=== PATIENT | female | born 1990 | race Caucasian/White ===

== ENCOUNTER → 2016-09-26 | Outpatient (CLI) | payer OTHER | END | disposition home or self-care (01) | LOC: C.PAPS 08:41 | PROVIDERS: ATTEND Obstetrics & Gynecology | DX: Z12.4 Encounter for screening for malignant neoplasm of cervix (principal) ==

== ENCOUNTER → 2016-09-26 | Outpatient (CLI) | payer OTHER ==
[2016-10-01 04:24] LABS: CHLAMYDIA TRACH RNA*** NOT DETECTED (NOT DETECTED); GC (NEIS GONORRHOEAE)RNA** NOT DETECTED (NOT DETECTED)
== END | disposition home or self-care (01) ==
LOC: C.LABSPEC 17:47
PROVIDERS: ATTEND Obstetrics & Gynecology
DX: Z12.4 Encounter for screening for malignant neoplasm of cervix (principal)

== ENCOUNTER 2023-12-08 19:07 | Inpatient (IN) ==
--- NOTE | 2023-12-08 20:20 | History & Physical Report ---
Date of Service December 08, 2023 Assessment & Plan (1) Non-dilated cervix in term : (2) Post-dates : Plan cx encinas placed. fhts categ 1. dc home after 1hr. parameters to call reviewed. what to expect with encinas ripening balloon reviewed. nst reactive. History of Present Illness Chief Complaint: unfavorable cx at term Primary Care Provider: [facility] 33yo at 41+wks ega presents to LD for planned cervical dilator for unfavorable cx at term. No rom, vb. +FM. No ctx. PNC c/b 1. postdates PNL rh pos, ri, gbs neg OBH: g1 GYNH: nl paps no stds Allergies Allergy/AdvReac Type Severity Reaction Status Date / Time No Known Drug Allergies Allergy None Verified 12/08/23 19:31 Home Medications Medication Instructions Recorded Confirmed Type vits no.130-ferrous fum 1 tab PO DAILY 12/08/23 12/08/23 History 27 mg iron-folic acid 800 mcg tablet ( Vitamin) Patient History Medical History (Updated 12/08/23 @ 20:17 by Jeanne Yang MD, FACOG) History of chicken pox COVID-19 (05/2021) Anxiety and depression Presence of IUD Tressa July 2019 - , d/c'd Surgical History History of wisdom tooth extraction Family History Father Hypertension Dyslipidemia Kidney disease Mother Dyslipidemia Osteoporosis Thyroid disease Grandfather (Maternal) Cardiac disorder Denies family history of Ovarian cancer Breast cancer Colorectal cancer Uterine cancer Social History Smoking Status: Never smoker Do You Dip or Chew Tobacco: No; Hx Alcohol Use: Yes Alcohol Intake Frequency: 4 or More x per/Week Alcohol Intake Frequency Comment: 4 drinks on the weekend. 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 Other Information That Helps Us Care for You: No Feels Safe at Home: Yes Safety Concerns: Feels Safe At This Time Diet Comment: heatlhy diet, + yogurt, no milk, during the past year weight has: remained stable Physical Activity Frequency: Daily Physical Activity Frequency Comment: runs, walks, hikes Seatbelt Use: always Sunscreen Use: Yes Assistive Devices: None Review of Systems as per Subjective / HPI Physical Exam Constitutional: WD/WN, vitals as above Gastrointestinal (Abdomen): soft gravid nt Neurologic: grossly normal Psychiatric: A+Ox3, euthymic affect Genitourinary: Manual OB Exam: + cervical dilation (visually 1cm) OB Exam Monitor Tracing: + external FHT monitor used, + external uterine monitor used, + category I (nst reactive) and + normal FHT variability PROCEDURE: sse cx visualized, grasped on ant lip with ring forcep, encinas through os and balloon inflated with 40cc sterile water. Spec removed, encinas taped to leg. pt belem well. Results & Data Vital Signs (Past 12 Hours) Vital Signs Temp Pulse Resp BP 12/08/23 19:34 98.2 F 18 12/08/23 19:27 82 141/84 H Coding Level of Care Code None Diagnoses Non-dilated cervix in term O34.40 Post-dates O48.0 CPT Codes Misx Procedure Codes - 91825 NST: 82901 NST ([id number]) Misx Procedure Codes - 37415 Placement of cervical dilator: 43140 Placement of cervical dilator ([id number])
[2023-12-08 22:04] LABS: Albumin Globulin Ratio 1.2 (0.9-2); Albumin Level 3.6 gm/dl (3.4-5.0); BUN Creatinine Ratio 11.7 (10-20); Bilirubin Direct 0.1 mg/dl (0-0.2); Bilirubin,Total 0.2 mg/dl (0.2-1.0); Calcium 9.3 mg/dl (8.6-10.3); Creatinine Clr Calc Pharmacy 144.5 ml/min; Est GFR (African American) 137.8 ml/min; Est GFR (Non-African American) 118.9 ml/min; Globulin 2.9 gm/dl (2.5-4.0); Potassium 3.9 mmol/L (3.5-5.1); Total Protein 6.5 gm/dl (6.0-8.3)
[2023-12-08] MEDS ORDERED: OXYTOCIN 30 UNITS/NSS 30 UNITS/500 ML BAG IV PRN (22:30)
[2023-12-08] MEDS ORDERED: LIDOCAINE 1% LOCAL 20 ML VIAL INFIL PRN (22:30)
[2023-12-08] MEDS ORDERED: CALCIUM CARBONATE 500 MG CHEWABLE TAB PO PRN (22:30)
--- NOTE | 2023-12-08 22:34 | Communication Note ---
Date of Service: December 08, 2023 Patient bps reported to me. Labs pending. LFTs wnl. will rec keep to begin induction with pitocin. abd soft gravid nt, dtrs +2, no clonus, tr edema. no sx. epidural when desires.
[2023-12-08] MEDS: LACTATED RINGER'S 1,000 ML IV PRN (23:05)
[2023-12-08 23:17] LABS: Basophils # (auto) 0.04 K/uL (0.00-0.20); Basophils % (auto) 0.5 %; Eosinophils # (auto) 0.18 K/uL (0.00-0.50); Eosinophils % (auto) 2.4 %; Hematocrit (blood only) 34.1 % (37.0-47.0); Hemoglobin 11.8 g/dl (12.0-16.0); Immature Granulocytes # (auto) 0.07 K/uL (0.01-0.20); Immature Granulocytes % (auto) 0.9 %; Lymphocytes % (auto) 23.7 %; Mean Corpuscular Hemoglobin 29.7 pg (25.0-34.0); Mean Corpuscular Hgb Conc 34.6 g/dL (32.0-36.0); Mean Corpuscular Volume 85.9 fL (80.0-100.0); Mean Platelet Volume 12.3 fL (9.4-12.4); Monocytes # (auto) 0.74 K/uL (0.11-0.59); Monocytes % (auto) 9.7 %; Neutrophils # (auto) 4.77 K/uL (1.40-6.50); Neutrophils % (auto) 62.8 %; Platelet Count 159 K/uL (130-400); RDW Coefficient of Variation 14.6 % (11.5-14.5); RDW Standard Deviation 45.6 fL (36.4-46.3); Red Blood Count 3.97 M/uL (4.20-5.40)
[2023-12-09] MEDS: OXYTOCIN 30 UNITS/NSS 30 UNITS/500 ML BAG IV PRN (00:02)
[2023-12-09 00:15] LABS: Total Protein Urine Random 7.6 mg/dl (0-11.9)
[2023-12-09 00:20] LABS: Creatinine Urine Random 67.3 mg/dl; Protein Creatinine Ratio Urine 0.1 (0-0.2)
[2023-12-09] MEDS ORDERED: diphenhydrAMINE 50 MG/ML VIAL IV PRN ×2 (08:06→14:16)
--- NOTE | 2023-12-09 08:07 | Labor Progress Brief Note ---
Date of Service December 09, 2023 Subjective denies pain, cramping but worse laying down. balloon fell out about 4am. no coreas or visual change. having left sided calf tatyana horse. Assessment & Plan (1) Encounter for induction of labor: (2) Gestational hypertension: (3) Post-dates : Plan will see how arom helps labor pattern. monitor calf pain, if persists consider duplex. ordered zofran prn per pt request and benadryl due to her abdomen is itchy at her stretch mccain. fhts categ 1. bps ok. c/w pitocin. epidural when desires. Admission and Anticipated Discharge Date Admission Date: December 08, 2023 Physical Exam Constitutional: WD/WN, vitals as above Musculoskeletal: bilateral calves wnl, and equal, no erythema or cord. no significant swellling Genitourinary: Manual OB Exam: + cervical dilation 4 cm, + cervical effacement (75%), + station -2 and + amniotic fluid (arom) clear OB Exam Monitor Tracing: + external FHT monitor used, + external uterine monitor used (q3, pit at 13), + category I and + normal FHT variability Results & Data Vital Signs (Past 12 Hours) Vital Signs Temp Pulse Resp BP 12/09/23 07:24 75 143/81 H 12/09/23 07:13 97.9 F 18 12/09/23 06:24 76 16 141/72 H 12/09/23 05:24 68 142/91 H 12/09/23 04:24 74 129/64 12/09/23 04:09 18 12/09/23 04:09 97.5 F L 18 12/09/23 03:23 75 116/61 12/09/23 02:20 16 12/09/23 02:20 79 16 125/61 12/09/23 01:17 96 H 136/67 12/09/23 00:09 90 147/71 H 12/09/23 00:08 87 12/09/23 00:08 197/86 H 12/09/23 00:08 83 182/94 H 12/09/23 00:05 18 12/09/23 00:05 98.2 F 18 12/08/23 22:07 79 149/96 H 12/08/23 20:59 74 141/90 H Coding Level of Care Code None Diagnoses Encounter for induction of labor Z34.90 Gestational hypertension O13.9 Post-dates O48.0
[2023-12-09] MEDS: ONDANSETRON INJ 2 MG/ML 2 ML VIAL IV PRN (11:01)
[2023-12-09] MEDS: LIDOCAINE 2%/EPINEPHRINE 1:200,000 20 ML PF ONE (13:56)
[2023-12-09] MEDS: fentANYL 2 MCG/ML BUPIVacaine 0.125%-NSS 100ML BAG ONE (13:57)
--- NOTE | 2023-12-09 14:14 | Anesthesiology Consultation ---
Date of Service December 09, 2023 Assessment & Plan Chart Review Chart Review: Acceptable Risk for Labor Epidural Consults Requested none History Height/Weight Height: 5 ft 4 in Weight: 91.172 kg Allergies Allergy/AdvReac Type Severity Reaction Status Date / Time No Known Drug Allergies Allergy None Verified 12/08/23 19:31 Medications Home Medications Medication Instructions Recorded Confirmed Last Taken vits no.130-ferrous fum 1 tab PO DAILY 12/08/23 12/08/23 12/07/23 27 mg iron-folic acid 800 mcg tablet ( Vitamin) Active Medications Generic Name Dose Route Start Last Admin Trade Name Freq PRN Reason Stop Dose Admin Lactated Ringer's 1,000 mls @ 125 mls/hr 12/08/23 22:30 12/09/23 13:21 Lr IV 12/10/23 22:29 125 mls/hr .Q8H PRN Administration L&D Protocol Protocol Oxytocin 30 units in 500 mls @ 15 mls/hr 12/08/23 22:30 12/09/23 09:04 Pitocin 30 Units/Nss IV 12/10/23 22:29 0.9 units/hr .Q24H PRN 15 mls/hr Labor Induction/Augmentation Titration Protocol 0.9 UNITS/HR Ondansetron HCl 4 mg 12/09/23 08:06 12/09/23 11:01 Ondansetron Inj 2 Mg/Ml 2 Ml Vial IV 01/08/24 08:14 4 mg Q6H PRN Administration Nausea And Vomiting Past Medical History Medical History (Updated 12/09/23 @ 08:05 by Jeanne Yang MD, FACOG) History of chicken pox COVID-19 (05/2021) Anxiety and depression Presence of IUD Tressa July 2019 - , d/c'd Past Family History Family History Father Hypertension Dyslipidemia Kidney disease Mother Dyslipidemia Osteoporosis Thyroid disease Grandfather (Maternal) Cardiac disorder Denies family history of Ovarian cancer Breast cancer Colorectal cancer Uterine cancer Past Surgical History Surgical History History of wisdom tooth extraction Social History Smoking Status: Never smoker Do You Dip or Chew Tobacco: No Hx Alcohol Use: Yes Hx Substance Use: No substance use type: does not use Physical Exam Vital Signs Last Vital Signs Temp 36.8 C 12/09/23 12:36 Pulse 92 H 12/09/23 14:13 Resp 18 12/09/23 12:36 BP 154/75 H 12/09/23 14:11 Pulse Ox 98 12/09/23 14:13 Testing Laboratory Results 12/08/23 21:29 12/08/23 21:29
[2023-12-09] MEDS ORDERED: SODIUM CHLORIDE 0.9% PF INJ 10 ML VIAL EPI PRN (14:16)
[2023-12-09] MEDS ORDERED: NALOXONE HCL 1 MG in SODIUM CHLORIDE 0.9% 1,000 ML IV PRN (14:16)
[2023-12-09] MEDS ORDERED: LIDOCAINE 2% MPF LOCAL 5 ML VIAL EPI PRN (14:16)
[2023-12-09] MEDS ORDERED: ROPIVACAINE 0.5% PF 5 MG/ML 20 ML VIAL EPI PRN (14:16)
[2023-12-09] MEDS ORDERED: BUPIVACAINE 0.25% PF 30 ML VIAL EPI PRN (14:16)
[2023-12-09] MEDS ORDERED: NALOXONE HCL 0.4 MG/1 ML VIAL/CARP IV PRN (14:16)
[2023-12-09] MEDS ORDERED: ePHEDrine sulfate 50 MG/ML AMP IV PRN (14:16)
[2023-12-09] MEDS ORDERED: fentaNYL citrate PF 100 MCG/2 ML VIAL EPI PRN (14:16)
[2023-12-09] MEDS ORDERED: NALBUPHINE HCL 5 MG in SYRINGE 0 ML IV PRN (14:16)
[2023-12-09] MEDS: fentaNYL citrate PF 100 MCG/2 ML VIAL ONE (17:06)
[2023-12-09] MEDS: ePHEDrine sulfate 50 MG/ML AMP ONE (17:06)
[2023-12-09] MEDS: SODIUM CHLORIDE 0.9% PF INJ 10 ML VIAL ONE (17:07)
[2023-12-09] MEDS: BUPIVACAINE 0.25% PF 30 ML VIAL ONE (17:07)
[2023-12-09] MEDS: BUPIVACAINE 0.25% PF 30 ML VIAL EPI STA (17:07)
--- NOTE | 2023-12-09 18:17 | Labor Progress Brief Note ---
Date of Service December 09, 2023 Subjective Comfortable. FHT Cat 1 [place] Q 2-3 SVE 6/80/-2 IUPC placed, ok to increase pitocin to 25. Assessment & Plan Admission and Anticipated Discharge Date Admission Date: December 08, 2023 Results & Data Vital Signs (Past 12 Hours) Vital Signs Temp Pulse Resp BP Pulse Ox 12/09/23 18:13 85 98 12/09/23 18:11 80 140/78 12/09/23 18:08 94 H 99 12/09/23 18:03 87 99 12/09/23 17:58 79 100 12/09/23 17:57 75 138/79 12/09/23 17:53 83 98 12/09/23 17:48 80 98 12/09/23 17:43 85 99 12/09/23 17:41 85 129/77 12/09/23 17:38 81 99 12/09/23 17:33 74 99 12/09/23 17:28 95 H 98 12/09/23 17:27 83 135/79 12/09/23 17:23 84 99 12/09/23 17:18 75 99 12/09/23 17:15 16 12/09/23 17:15 16 12/09/23 17:13 78 100 12/09/23 17:12 72 129/74 12/09/23 17:08 81 99 12/09/23 17:03 78 99 12/09/23 16:58 75 99 12/09/23 16:56 74 135/76 12/09/23 16:53 77 99 12/09/23 16:48 88 100 12/09/23 16:46 102 H 88 L 12/09/23 16:43 78 99 12/09/23 16:41 74 135/66 12/09/23 16:38 81 99 12/09/23 16:33 78 100 12/09/23 16:28 80 100 12/09/23 16:26 78 130/63 12/09/23 16:23 81 99 12/09/23 16:18 82 99 12/09/23 16:13 76 100 12/09/23 16:12 36.4 C L 81 130/60 12/09/23 16:08 82 99 12/09/23 16:03 79 99 12/09/23 16:00 18 12/09/23 16:00 18 07/16/24 15:58 80 99 12/09/23 15:56 78 136/77 12/09/23 15:53 85 99 12/09/23 15:48 79 99 12/09/23 15:43 72 96 12/09/23 15:41 72 130/66 12/09/23 15:38 71 97 12/09/23 15:34 76 94 12/09/23 15:33 76 94 12/09/23 15:30 18 12/09/23 15:30 18 12/09/23 15:28 74 94 12/09/23 15:26 75 130/62 12/09/23 15:25 76 94 12/09/23 15:23 76 94 12/09/23 15:18 94 12/09/23 15:18 73 12/09/23 15:18 74 94 12/09/23 15:13 94 12/09/23 15:13 78 12/09/23 15:13 77 92 12/09/23 15:11 74 129/61 12/09/23 15:08 94 12/09/23 15:08 77 12/09/23 15:08 79 94 12/09/23 15:03 77 95 12/09/23 14:58 77 96 12/09/23 14:57 77 139/70 12/09/23 14:53 77 96 12/09/23 14:48 78 96 12/09/23 14:43 98 12/09/23 14:43 78 12/09/23 14:43 78 131/82 12/09/23 14:38 90 98 12/09/23 14:33 82 96 12/09/23 14:30 16 12/09/23 14:30 16 12/09/23 14:28 80 99 12/09/23 14:26 82 157/69 H 12/09/23 14:23 89 97 12/09/23 14:18 83 98 12/09/23 14:13 92 H 98 12/09/23 14:11 89 154/75 H 12/09/23 14:08 82 99 12/09/23 14:07 83 135/64 12/09/23 14:04 87 131/83 12/09/23 14:03 86 97 12/09/23 14:01 85 125/61 12/09/23 13:58 82 125/57 L 98 12/09/23 13:55 89 138/65 12/09/23 13:53 89 98 12/09/23 13:52 83 130/65 12/09/23 13:49 79 124/63 12/09/23 13:48 86 97 12/09/23 13:46 81 132/70 12/09/23 13:44 83 142/80 H 12/09/23 13:43 85 139/73 98 12/09/23 13:40 71 141/78 H 12/09/23 13:38 82 98 12/09/23 13:33 92 H 99 12/09/23 13:28 77 98 12/09/23 13:23 86 98 12/09/23 12:36 18 12/09/23 12:36 36.8 C 18 12/09/23 12:35 87 149/80 H 12/09/23 11:32 36.7 C 75 136/82 12/09/23 10:33 76 137/87 12/09/23 09:05 36.7 C 18 12/09/23 09:00 18 12/09/23 09:00 18 12/09/23 08:24 72 132/82 12/09/23 07:24 75 143/81 H 12/09/23 07:13 36.6 C 12/09/23 06:24 76 16 141/72 H Coding Level of Care Code None
[2023-12-09] MEDS: SODIUM CHLORIDE 0.9% PF INJ 10 ML VIAL EPI STA (18:34)
[2023-12-09] MEDS: fentaNYL citrate PF 100 MCG/2 ML VIAL EPI STA (18:34)
[2023-12-09] MEDS: LIDOCAINE 2%/EPINEPHRINE 1:200,000 20 ML PF EPI STA (18:34)
[2023-12-09] MEDS: fentANYL 2 MCG/ML BUPIVacaine 0.125%-NSS 100ML BAG EPI PRN (21:39)
--- NOTE | 2023-12-09 22:15 | Labor Progress Brief Note ---
Date of Service December 09, 2023 Subjective Comfortable with epidural. FHT Cat 1 with early decelerations [place] Q 2-4 7//-1 Pitocin at 25. Continue IOL. Assessment & Plan Admission and Anticipated Discharge Date Admission Date: December 08, 2023 Results & Data Vital Signs (Past 12 Hours) Vital Signs Temp Pulse Resp BP Pulse Ox 12/09/23 22:11 86 140/78 12/09/23 22:08 88 98 12/09/23 22:03 82 97 12/09/23 21:58 82 98 12/09/23 21:56 85 137/79 12/09/23 21:53 85 98 12/09/23 21:48 86 98 12/09/23 21:43 90 97 12/09/23 21:42 84 134/68 12/09/23 21:38 93 H 98 12/09/23 21:33 93 H 99 12/09/23 21:28 95 H 98 12/09/23 21:26 86 131/62 12/09/23 21:23 87 99 12/09/23 21:18 83 98 12/09/23 21:13 90 99 12/09/23 21:11 86 131/60 12/09/23 21:09 18 12/09/23 21:09 36.8 C 18 12/09/23 21:08 94 H 99 12/09/23 21:03 96 H 99 12/09/23 20:58 87 98 12/09/23 20:56 83 134/78 12/09/23 20:53 85 96 12/09/23 20:48 82 98 12/09/23 20:43 78 99 12/09/23 20:42 80 131/77 12/09/23 20:38 80 99 12/09/23 20:33 81 100 12/09/23 20:28 89 99 12/09/23 20:26 77 134/75 12/09/23 20:23 83 99 12/09/23 20:18 82 98 12/09/23 20:13 82 99 12/09/23 20:11 84 131/63 12/09/23 20:08 89 99 12/09/23 20:03 80 99 12/09/23 19:58 83 98 12/09/23 19:57 82 132/87 12/09/23 19:53 80 99 12/09/23 19:48 83 98 12/09/23 19:43 85 99 12/09/23 19:42 85 127/67 12/09/23 19:38 80 98 12/09/23 19:33 89 99 12/09/23 19:28 83 99 12/09/23 19:26 83 120/61 12/09/23 19:23 86 99 12/09/23 19:18 82 100 12/09/23 19:15 86 128/69 12/09/23 19:13 95 H 98 12/09/23 19:10 36.7 C 18 12/09/23 19:08 83 99 12/09/23 19:03 84 98 12/09/23 18:58 87 98 12/09/23 18:53 82 99 12/09/23 18:48 95 H 98 12/09/23 18:43 82 158/96 H 98 12/09/23 18:38 84 99 12/09/23 18:33 91 H 98 12/09/23 18:28 89 98 12/09/23 18:26 85 128/65 12/09/23 18:23 86 98 12/09/23 18:20 18 12/09/23 18:20 36.8 C 18 12/09/23 18:18 93 H 98 12/09/23 18:13 85 98 12/09/23 18:11 80 140/78 12/09/23 18:08 94 H 99 12/09/23 18:03 87 99 12/09/23 17:58 79 100 12/09/23 17:57 75 138/79 12/09/23 17:53 83 98 12/09/23 17:48 80 98 12/09/23 17:43 85 99 12/09/23 17:41 85 129/77 12/09/23 17:38 81 99 12/09/23 17:33 74 99 12/09/23 17:28 95 H 98 12/09/23 17:27 83 135/79 12/09/23 17:23 84 99 12/09/23 17:18 75 99 12/09/23 17:15 16 12/09/23 17:15 16 12/09/23 17:13 78 100 12/09/23 17:12 72 129/74 12/09/23 17:08 81 99 12/09/23 17:03 78 99 12/09/23 16:58 75 99 12/09/23 16:56 74 135/76 12/09/23 16:53 77 99 12/09/23 16:48 88 100 12/09/23 16:46 102 H 88 L 12/09/23 16:43 78 99 12/09/23 16:41 74 135/66 12/09/23 16:38 81 99 12/09/23 16:33 78 100 12/09/23 16:28 80 100 12/09/23 16:26 78 130/63 12/09/23 16:23 81 99 12/09/23 16:18 82 99 12/09/23 16:13 76 100 12/09/23 16:12 36.4 C L 81 130/60 12/09/23 16:08 82 99 12/09/23 16:03 79 99 12/09/23 16:00 18 12/09/23 16:00 18 12/09/23 15:58 80 99 12/09/23 15:56 78 136/77 12/09/23 15:53 85 99 12/09/23 15:48 79 99 12/09/23 15:43 72 96 12/09/23 15:41 72 130/66 12/09/23 15:38 71 97 12/09/23 15:34 76 94 12/09/23 15:33 76 94 12/09/23 15:30 18 12/09/23 15:30 18 12/09/23 15:28 74 94 12/09/23 15:26 75 130/62 12/09/23 15:25 76 94 12/09/23 15:23 76 94 12/09/23 15:18 94 12/09/23 15:18 73 12/09/23 15:18 74 94 12/09/23 15:13 94 12/09/23 15:13 78 12/09/23 15:13 77 92 12/09/23 15:11 74 129/61 12/09/23 15:08 94 12/09/23 15:08 77 12/09/23 15:08 79 94 12/09/23 15:03 77 95 12/09/23 14:58 77 96 12/09/23 14:57 77 139/70 12/09/23 14:53 77 96 12/09/23 14:48 78 96 12/09/23 14:43 98 12/09/23 14:43 78 07 14:43 78 131/82 12/09/23 14:38 90 98 12/09/23 14:33 82 96 12/09/23 14:30 16 12/09/23 14:30 16 12/09/23 14:28 80 99 12/09/23 14:26 82 157/69 H 12/09/23 14:23 89 97 12/09/23 14:18 83 98 12/09/23 14:13 92 H 98 12/09/23 14:11 89 154/75 H 12/09/23 14:08 82 99 12/09/23 14:07 83 135/64 12/09/23 14:04 87 131/83 12/09/23 14:03 86 97 12/09/23 14:01 85 125/61 12/09/23 13:58 82 125/57 L 98 12/09/23 13:55 89 138/65 12/09/23 13:53 89 98 12/09/23 13:52 83 130/65 12/09/23 13:49 79 124/63 12/09/23 13:48 86 97 12/09/23 13:46 81 132/70 12/09/23 13:44 83 142/80 H 12/09/23 13:43 85 139/73 98 12/09/23 13:40 71 141/78 H 12/09/23 13:38 82 98 12/09/23 13:33 92 H 99 12/09/23 13:28 77 98 12/09/23 13:23 86 98 12/09/23 12:36 18 12/09/23 12:36 36.8 C 18 12/09/23 12:35 87 149/80 H 12/09/23 11:32 36.7 C 75 136/82 12/09/23 10:33 76 137/87 Coding Level of Care Code None
--- NOTE | 2023-12-10 01:29 | Labor Progress Brief Note ---
Date of Service December 10, 2023 Subjective Comfortable. FHT Cat 1 [place] Q 2-4 SVE 8-9/100/-1 Continuing to make slow change, however has continued to progress. Will continue IOL at this time. Assessment & Plan Admission and Anticipated Discharge Date Admission Date: December 08, 2023 Results & Data Vital Signs (Past 12 Hours) Vital Signs Temp Pulse Resp BP Pulse Ox 12/10/23 01:27 92 H 111/68 12/10/23 01:23 91 H 97 12/10/23 01:18 83 97 12/10/23 01:13 79 97 12/10/23 01:11 77 128/66 12/10/23 01:08 77 98 12/10/23 01:03 85 97 12/10/23 01:02 18 12/10/23 01:02 36.9 C 18 12/10/23 00:58 80 97 12/10/23 00:56 86 140/74 12/10/23 00:53 96 H 96 12/10/23 00:52 86 92 12/10/23 00:48 83 98 12/10/23 00:43 102 H 97 12/10/23 00:42 81 134/64 12/10/23 00:38 87 96 12/10/23 00:33 90 98 12/10/23 00:28 87 97 12/10/23 00:26 83 127/63 12/10/23 00:23 96 H 98 12/10/23 00:18 87 98 12/10/23 00:13 83 97 12/10/23 00:11 82 118/55 L 12/10/23 00:10 85 91 12/10/23 00:08 86 97 12/10/23 00:03 96 H 98 12/09/23 23:58 93 H 96 12/09/23 23:56 88 124/62 12/09/23 23:53 87 95 12/09/23 23:48 82 95 12/09/23 23:45 85 94 12/09/23 23:43 86 95 12/09/23 23:41 82 103/53 L 12/09/23 23:38 82 96 12/09/23 23:33 87 95 12/09/23 23:28 88 95 12/09/23 23:26 85 123/63 12/09/23 23:23 94 H 97 12/09/23 23:18 82 96 12/09/23 23:13 93 H 97 12/09/23 23:12 88 120/60 12/09/23 23:08 87 97 12/09/23 23:06 37.0 C 18 12/09/23 23:03 88 95 12/09/23 22:58 85 95 12/09/23 22:56 84 131/68 12/09/23 22:53 88 96 12/09/23 22:48 88 96 12/09/23 22:43 82 97 12/09/23 22:41 81 135/73 12/09/23 22:38 89 98 12/09/23 22:33 87 97 12/09/23 22:28 89 97 12/09/23 22:27 86 129/77 12/09/23 22:23 104 H 97 12/09/23 22:18 89 98 12/09/23 22:13 88 98 12/09/23 22:11 86 140/78 12/09/23 22:08 88 98 12/09/23 22:03 82 97 12/09/23 21:58 82 98 12/09/23 21:56 85 137/79 12/09/23 21:53 85 98 12/09/23 21:48 86 98 12/09/23 21:43 90 97 12/09/23 21:42 84 134/68 12/09/23 21:38 93 H 98 12/09/23 21:33 93 H 99 12/09/23 21:28 95 H 98 12/09/23 21:26 86 131/62 12/09/23 21:23 87 99 12/09/23 21:18 83 98 12/09/23 21:13 90 99 12/09/23 21:11 86 131/60 12/09/23 21:09 18 12/09/23 21:09 36.8 C 18 12/09/23 21:08 94 H 99 12/09/23 21:03 96 H 99 12/09/23 20:58 87 98 12/09/23 20:56 83 134/78 12/09/23 20:53 85 96 12/09/23 20:48 82 98 12/09/23 20:43 78 99 12/09/23 20:42 80 131/77 12/09/23 20:38 80 99 07/16/24 20:33 81 100 12/09/23 20:28 89 99 12/09/23 20:26 77 134/75 12/09/23 20:23 83 99 12/09/23 20:18 82 98 12/09/23 20:13 82 99 12/09/23 20:11 84 131/63 12/09/23 20:08 89 99 12/09/23 20:03 80 99 12/09/23 19:58 83 98 12/09/23 19:57 82 132/87 12/09/23 19:53 80 99 12/09/23 19:48 83 98 12/09/23 19:43 85 99 12/09/23 19:42 85 127/67 12/09/23 19:38 80 98 12/09/23 19:33 89 99 12/09/23 19:28 83 99 12/09/23 19:26 83 120/61 12/09/23 19:23 86 99 12/09/23 19:18 82 100 12/09/23 19:15 86 128/69 12/09/23 19:13 95 H 98 12/09/23 19:10 36.7 C 18 12/09/23 19:08 83 99 12/09/23 19:03 84 98 12/09/23 18:58 87 98 12/09/23 18:53 82 99 12/09/23 18:48 95 H 98 12/09/23 18:43 82 158/96 H 98 12/09/23 18:38 84 99 12/09/23 18:33 91 H 98 12/09/23 18:28 89 98 12/09/23 18:26 85 128/65 12/09/23 18:23 86 98 12/09/23 18:20 18 12/09/23 18:20 36.8 C 18 12/09/23 18:18 93 H 98 12/09/23 18:13 85 98 12/09/23 18:11 80 140/78 12/09/23 18:08 94 H 99 12/09/23 18:03 87 99 12/09/23 17:58 79 100 12/09/23 17:57 75 138/79 12/09/23 17:53 83 98 12/09/23 17:48 80 98 12/09/23 17:43 85 99 12/09/23 17:41 85 129/77 12/09/23 17:38 81 99 12/09/23 17:33 74 99 12/09/23 17:28 95 H 98 12/09/23 17:27 83 135/79 12/09/23 17:23 84 99 12/09/23 17:18 75 99 12/09/23 17:15 16 12/09/23 17:15 16 12/09/23 17:13 78 100 12/09/23 17:12 72 129/74 12/09/23 17:08 81 99 12/09/23 17:03 78 99 12/09/23 16:58 75 99 12/09/23 16:56 74 135/76 12/09/23 16:53 77 99 12/09/23 16:48 88 100 12/09/23 16:46 102 H 88 L 12/09/23 16:43 78 99 12/09/23 16:41 74 135/66 12/09/23 16:38 81 99 12/09/23 16:33 78 100 12/09/23 16:28 80 100 12/09/23 16:26 78 130/63 12/09/23 16:23 81 99 12/09/23 16:18 82 99 12/09/23 16:13 76 100 12/09/23 16:12 36.4 C L 81 130/60 12/09/23 16:08 82 99 12/09/23 16:03 79 99 12/09/23 16:00 18 12/09/23 16:00 18 12/09/23 15:58 80 99 12/09/23 15:56 78 136/77 12/09/23 15:53 85 99 12/09/23 15:48 79 99 12/09/23 15:43 72 96 12/09/23 15:41 72 130/66 12/09/23 15:38 71 97 12/09/23 15:34 76 94 12/09/23 15:33 76 94 12/09/23 15:30 18 12/09/23 15:30 18 12/09/23 15:28 74 94 12/09/23 15:26 75 130/62 12/09/23 15:25 76 94 12/09/23 15:23 76 94 12/09/23 15:18 94 12/09/23 15:18 73 12/09/23 15:18 74 94 12/09/23 15:13 94 12/09/23 15:13 78 12/09/23 15:13 77 92 12/09/23 15:11 74 129/61 12/09/23 15:08 94 12/09/23 15:08 77 12/09/23 15:08 79 94 12/09/23 15:03 77 95 12/09/23 14:58 77 96 12/09/23 14:57 77 139/70 12/09/23 14:53 77 96 12/09/23 14:48 78 96 12/09/23 14:43 98 12/09/23 14:43 78 12/09/23 14:43 78 131/82 12/09/23 14:38 90 98 12/09/23 14:33 82 96 12/09/23 14:30 16 12/09/23 14:30 16 12/09/23 14:28 80 99 12/09/23 14:26 82 157/69 H 12/09/23 14:23 89 97 12/09/23 14:18 83 98 12/09/23 14:13 92 H 98 12/09/23 14:11 89 154/75 H 12/09/23 14:08 82 99 12/09/23 14:07 83 135/64 12/09/23 14:04 87 131/83 12/09/23 14:03 86 97 12/09/23 14:01 85 125/61 12/09/23 13:58 82 125/57 L 98 12/09/23 13:55 89 138/65 12/09/23 13:53 89 98 12/09/23 13:52 83 130/65 12/09/23 13:49 79 124/63 12/09/23 13:48 86 97 12/09/23 13:46 81 132/70 12/09/23 13:44 83 142/80 H 12/09/23 13:43 85 139/73 98 12/09/23 13:40 71 141/78 H 12/09/23 13:38 82 98 12/09/23 13:33 92 H 99 Coding Level of Care Code None
--- NOTE | 2023-12-10 07:31 | Labor Progress Brief Note ---
Date of Service December 10, 2023 Subjective Feeling increase in pressure with ctx. FHT Cat 1 [facility] Q 2-3 SVE 9/100/0 Will allow pitocin to increase to 30. Assessment & Plan Admission and Anticipated Discharge Date Admission Date: December 08, 2023 Results & Data Vital Signs (Past 12 Hours) Vital Signs Temp Pulse Resp BP Pulse Ox 12/10/23 07:27 78 153/90 H 12/10/23 07:23 84 97 12/10/23 07:18 85 97 12/10/23 07:13 90 97 12/10/23 07:12 89 146/83 H 12/10/23 07:08 86 98 12/10/23 07:03 101 H 98 12/10/23 06:58 87 98 12/10/23 06:56 83 142/77 H 12/10/23 06:53 81 97 12/10/23 06:48 83 98 12/10/23 06:43 88 99 12/10/23 06:41 87 133/68 12/10/23 06:38 86 99 12/10/23 06:33 92 H 98 12/10/23 06:28 93 H 98 12/10/23 06:26 82 127/78 12/10/23 06:23 85 99 12/10/23 06:18 87 100 12/10/23 06:13 83 98 12/10/23 06:11 78 136/81 12/10/23 06:08 77 96 12/10/23 06:03 76 97 12/10/23 05:58 74 96 12/10/23 05:56 79 137/78 12/10/23 05:53 79 96 12/10/23 05:48 76 96 12/10/23 05:43 80 99 12/10/23 05:41 74 137/77 12/10/23 05:38 74 97 12/10/23 05:33 77 97 12/10/23 05:28 81 99 12/10/23 05:27 74 130/71 12/10/23 05:23 79 98 12/10/23 05:18 85 99 12/10/23 05:13 96 H 99 12/10/23 05:11 90 101/73 12/10/23 05:08 88 99 12/10/23 05:03 36.8 C 84 18 98 12/10/23 04:58 75 98 07/17/24 04:56 78 116/62 12/10/23 04:53 81 95 12/10/23 04:48 81 95 12/10/23 04:43 80 96 12/10/23 04:41 81 119/65 12/10/23 04:38 78 96 12/10/23 04:33 76 96 12/10/23 04:28 82 96 12/10/23 04:26 77 121/67 12/10/23 04:23 76 96 12/10/23 04:18 76 96 12/10/23 04:13 76 97 12/10/23 04:11 76 119/64 12/10/23 04:08 80 96 12/10/23 04:03 79 96 12/10/23 03:58 81 98 12/10/23 03:57 78 121/66 12/10/23 03:53 18 12/10/23 03:53 36.9 C 86 18 99 12/10/23 03:48 86 99 12/10/23 03:43 76 96 12/10/23 03:41 77 126/65 12/10/23 03:38 77 96 12/10/23 03:33 77 96 12/10/23 03:28 82 97 12/10/23 03:27 75 131/69 12/10/23 03:23 80 98 12/10/23 03:18 82 98 12/10/23 03:13 87 99 12/10/23 03:11 74 127/68 12/10/23 03:08 86 99 12/10/23 03:03 87 99 12/10/23 02:58 79 96 12/10/23 02:56 80 126/58 L 12/10/23 02:53 88 99 12/10/23 02:48 89 98 12/10/23 02:43 90 97 12/10/23 02:41 85 126/68 12/10/23 02:38 80 96 12/10/23 02:33 84 95 12/10/23 02:28 84 95 12/10/23 02:27 86 94 12/10/23 02:26 80 117/60 12/10/23 02:23 83 94 12/10/23 02:22 81 94 12/10/23 02:18 83 94 12/10/23 02:16 82 94 12/10/23 02:13 81 95 12/10/23 02:11 83 114/57 L 94 12/10/23 02:08 82 95 12/10/23 02:06 77 94 12/10/23 02:03 84 95 12/10/23 01:58 82 95 12/10/23 01:56 78 117/62 12/10/23 01:53 86 95 12/10/23 01:48 83 96 12/10/23 01:43 86 97 12/10/23 01:41 82 119/61 12/10/23 01:38 86 98 12/10/23 01:33 88 97 12/10/23 01:28 87 97 12/10/23 01:27 92 H 111/68 12/10/23 01:23 91 H 97 12/10/23 01:18 83 97 12/10/23 01:13 79 97 12/10/23 01:11 77 128/66 12/10/23 01:08 77 98 12/10/23 01:03 85 97 12/10/23 01:02 18 12/10/23 01:02 36.9 C 18 12/10/23 00:58 80 97 12/10/23 00:56 86 140/74 12/10/23 00:53 96 H 96 12/10/23 00:52 86 92 12/10/23 00:48 83 98 12/10/23 00:43 102 H 97 12/10/23 00:42 81 134/64 12/10/23 00:38 87 96 12/10/23 00:33 90 98 12/10/23 00:28 87 97 12/10/23 00:26 83 127/63 12/10/23 00:23 96 H 98 12/10/23 00:18 87 98 12/10/23 00:13 83 97 12/10/23 00:11 82 118/55 L 12/10/23 00:10 85 91 12/10/23 00:08 86 97 12/10/23 00:03 96 H 98 12/09/23 23:58 93 H 96 12/09/23 23:56 88 124/62 12/09/23 23:53 87 95 12/09/23 23:48 82 95 12/09/23 23:45 85 94 12/09/23 23:43 86 95 12/09/23 23:41 82 103/53 L 12/09/23 23:38 82 96 12/09/23 23:33 87 95 12/09/23 23:28 88 95 12/09/23 23:26 85 123/63 12/09/23 23:23 94 H 97 12/09/23 23:18 82 96 12/09/23 23:13 93 H 97 12/09/23 23:12 88 120/60 12/09/23 23:08 87 97 12/09/23 23:06 37.0 C 18 12/09/23 23:03 88 95 12/09/23 22:58 85 95 12/09/23 22:56 84 131/68 12/09/23 22:53 88 96 12/09/23 22:48 88 96 12/09/23 22:43 82 97 12/09/23 22:41 81 135/73 12/09/23 22:38 89 98 12/09/23 22:33 87 97 12/09/23 22:28 89 97 12/09/23 22:27 86 129/77 12/09/23 22:23 104 H 97 12/09/23 22:18 89 98 12/09/23 22:13 88 98 12/09/23 22:11 86 140/78 12/09/23 22:08 88 98 12/09/23 22:03 82 97 12/09/23 21:58 82 98 12/09/23 21:56 85 137/79 12/09/23 21:53 85 98 12/09/23 21:48 86 98 12/09/23 21:43 90 97 12/09/23 21:42 84 134/68 12/09/23 21:38 93 H 98 12/09/23 21:33 93 H 99 12/09/23 21:28 95 H 98 12/09/23 21:26 86 131/62 12/09/23 21:23 87 99 12/09/23 21:18 83 98 12/09/23 21:13 90 99 12/09/23 21:11 86 131/60 12/09/23 21:09 18 12/09/23 21:09 36.8 C 18 12/09/23 21:08 94 H 99 12/09/23 21:03 96 H 99 12/09/23 20:58 87 98 12/09/23 20:56 83 134/78 12/09/23 20:53 85 96 12/09/23 20:48 82 98 12/09/23 20:43 78 99 12/09/23 20:42 80 131/77 12/09/23 20:38 80 99 12/09/23 20:33 81 100 12/09/23 20:28 89 99 12/09/23 20:26 77 134/75 12/09/23 20:23 83 99 12/09/23 20:18 82 98 12/09/23 20:13 82 99 12/09/23 20:11 84 131/63 12/09/23 20:08 89 99 12/09/23 20:03 80 99 12/09/23 19:58 83 98 12/09/23 19:57 82 132/87 12/09/23 19:53 80 99 12/09/23 19:48 83 98 12/09/23 19:43 85 99 12/09/23 19:42 85 127/67 12/09/23 19:38 80 98 12/09/23 19:33 89 99 Coding Level of Care Code None
--- NOTE | 2023-12-10 12:29 | Labor Progress Brief Note ---
Date of Service December 10, 2023 Subjective Reason For Note: Routine Evaluation Assessment & Plan (1) Encounter for induction of labor: Plan: Cervix unchanged from prior exam. Has been approximately 9 cm dilated since 5: 30 AM. Pitocin currently at 30 with inadequate contractions noted with IUPC. Will stop Pitocin and restarted at half and 30 minutes. Discussed plan with patient and her partner who are agreeable. Category 1 tracing noted. (2) Supervision of normal first : Trimester: third trimester Qualified Code(s): Z34.03 - Encounter for supervision of normal first , third trimester (3) Gestational hypertension: Trimester: third trimester Qualified Code(s): O13.3 - Gestational [-induced] hypertension without significant proteinuria, third trimester Admission and Anticipated Discharge Date Admission Date: December 08, 2023 Physical Exam Physical Exam: Note from evaluation at approximately 9:45 AM Genitourinary: Manual OB Exam: + cervical dilation 9 cm, + cervical effacement 100% and + station + 1 OB Exam Monitor Tracing: + external FHT monitor used, + external uterine monitor used, + category I and + normal FHT variability Cervix unchanged from prior exam. Results & Data Vital Signs (Past 12 Hours) Vital Signs Temp Pulse Resp BP Pulse Ox 12/10/23 12:23 81 98 12/10/23 12:18 83 99 12/10/23 12:13 78 99 12/10/23 12:11 82 135/70 12/10/23 12:08 94 H 97 12/10/23 12:03 83 99 12/10/23 11:58 76 98 12/10/23 11:56 83 134/72 12/10/23 11:53 77 99 12/10/23 11:48 101 H 98 12/10/23 11:43 90 99 12/10/23 11:41 78 134/61 12/10/23 11:38 80 97 12/10/23 11:33 88 98 12/10/23 11:28 98 12/10/23 11:28 93 H 12/10/23 11:28 78 112/57 L 12/10/23 11:23 87 99 12/10/23 11:18 86 98 12/10/23 11:15 16 12/10/23 11:15 36.9 C 16 12/10/23 11:13 95 H 99 12/10/23 11:12 81 132/71 24 11:08 80 98 0724 11:03 84 99 12/10/23 10:58 81 97 24 10:56 86 128/70 24 10:53 89 98 24 10:48 82 96 12/10/23 10:43 91 H 98 12/10/23 10:42 93 H 121/60 12/10/23 10:38 89 95 24 10:35 79 94 24 10:33 79 95 24 10:28 80 95 24 10:27 76 132/73 12/10/23 10:23 78 96 12/10/23 10:18 79 95 12/10/23 10:13 77 97 12/10/23 10:11 76 146/77 H 12/10/23 10:08 79 96 12/10/23 10:03 76 98 12/10/23 09:58 81 98 12/10/23 09:56 75 144/77 H 12/10/23 09:53 79 98 12/10/23 09:48 83 98 12/10/23 09:47 82 131/70 12/10/23 09:43 87 99 12/10/23 09:38 82 99 12/10/23 09:33 80 99 12/10/23 09:28 80 99 12/10/23 09:26 78 135/73 12/10/23 09:23 81 98 12/10/23 09:18 79 98 12/10/23 09:13 88 99 12/10/23 09:12 80 128/68 12/10/23 09:08 93 H 99 12/10/23 09:03 84 97 12/10/23 08:58 87 98 12/10/23 08:56 76 160/96 H 12/10/23 08:53 74 96 12/10/23 08:48 74 96 12/10/23 08:43 75 98 12/10/23 08:42 75 170/97 H 12/10/23 08:38 77 98 12/10/23 08:33 90 98 12/10/23 08:28 89 99 12/10/23 08:27 80 164/98 H 12/10/23 08:23 77 97 12/10/23 08:18 76 98 12/10/23 08:13 87 98 12/10/23 08:12 81 156/98 H 12/10/23 08:08 36.8 C 90 18 98 12/10/23 08:03 89 99 12/10/23 07:58 108 H 98 12/10/23 07:56 83 137/81 12/10/23 07:53 77 98 12/10/23 07:48 79 99 12/10/23 07:43 84 97 12/10/23 07:41 88 141/77 H 12/10/23 07:38 84 99 12/10/23 07:33 91 H 99 12/10/23 07:28 82 97 12/10/23 07:27 78 153/90 H 12/10/23 07:23 84 97 12/10/23 07:18 85 97 12/10/23 07:13 90 97 12/10/23 07:12 89 146/83 H 12/10/23 07:10 20 12/10/23 07:10 36.7 C 20 12/10/23 07:08 86 98 12/10/23 07:03 101 H 98 12/10/23 06:58 87 98 12/10/23 06:56 83 142/77 H 12/10/23 06:53 81 97 12/10/23 06:48 83 98 12/10/23 06:43 88 99 12/10/23 06:41 87 133/68 12/10/23 06:38 86 99 12/10/23 06:33 92 H 98 12/10/23 06:28 93 H 98 12/10/23 06:26 82 127/78 12/10/23 06:23 85 99 12/10/23 06:18 87 100 12/10/23 06:13 83 98 12/10/23 06:11 78 136/81 12/10/23 06:08 77 96 12/10/23 06:03 76 97 12/10/23 05:58 74 96 12/10/23 05:56 79 137/78 12/10/23 05:53 79 96 12/10/23 05:48 76 96 12/10/23 05:43 80 99 12/10/23 05:41 74 137/77 12/10/23 05:38 74 97 12/10/23 05:33 77 97 07/17/24 05:28 81 99 12/10/23 05:27 74 130/71 12/10/23 05:23 79 98 12/10/23 05:18 85 99 12/10/23 05:13 96 H 99 12/10/23 05:11 90 101/73 12/10/23 05:08 88 99 12/10/23 05:03 36.8 C 84 18 98 12/10/23 04:58 75 98 12/10/23 04:56 78 116/62 12/10/23 04:53 81 95 12/10/23 04:48 81 95 12/10/23 04:43 80 96 12/10/23 04:41 81 119/65 12/10/23 04:38 78 96 12/10/23 04:33 76 96 12/10/23 04:28 82 96 12/10/23 04:26 77 121/67 12/10/23 04:23 76 96 12/10/23 04:18 76 96 12/10/23 04:13 76 97 12/10/23 04:11 76 119/64 12/10/23 04:08 80 96 12/10/23 04:03 79 96 12/10/23 03:58 81 98 12/10/23 03:57 78 121/66 12/10/23 03:53 18 12/10/23 03:53 36.9 C 86 18 99 12/10/23 03:48 86 99 12/10/23 03:43 76 96 12/10/23 03:41 77 126/65 12/10/23 03:38 77 96 12/10/23 03:33 77 96 12/10/23 03:28 82 97 12/10/23 03:27 75 131/69 12/10/23 03:23 80 98 12/10/23 03:18 82 98 12/10/23 03:13 87 99 12/10/23 03:11 74 127/68 12/10/23 03:08 86 99 12/10/23 03:03 87 99 12/10/23 02:58 79 96 12/10/23 02:56 80 126/58 L 12/10/23 02:53 88 99 12/10/23 02:48 89 98 12/10/23 02:43 90 97 12/10/23 02:41 85 126/68 12/10/23 02:38 80 96 12/10/23 02:33 84 95 12/10/23 02:28 84 95 12/10/23 02:27 86 94 12/10/23 02:26 80 117/60 12/10/23 02:23 83 94 12/10/23 02:22 81 94 12/10/23 02:18 83 94 12/10/23 02:16 82 94 12/10/23 02:13 81 95 12/10/23 02:11 83 114/57 L 94 12/10/23 02:08 82 95 12/10/23 02:06 77 94 12/10/23 02:03 84 95 12/10/23 01:58 82 95 12/10/23 01:56 78 117/62 12/10/23 01:53 86 95 12/10/23 01:48 83 96 12/10/23 01:43 86 97 12/10/23 01:41 82 119/61 12/10/23 01:38 86 98 12/10/23 01:33 88 97 12/10/23 01:28 87 97 12/10/23 01:27 92 H 111/68 12/10/23 01:23 91 H 97 12/10/23 01:18 83 97 12/10/23 01:13 79 97 12/10/23 01:11 77 128/66 12/10/23 01:08 77 98 12/10/23 01:03 85 97 12/10/23 01:02 18 12/10/23 01:02 36.9 C 18 12/10/23 00:58 80 97 12/10/23 00:56 86 140/74 12/10/23 00:53 96 H 96 12/10/23 00:52 86 92 12/10/23 00:48 83 98 12/10/23 00:43 102 H 97 12/10/23 00:42 81 134/64 12/10/23 00:38 87 96 12/10/23 00:33 90 98 12/10/23 00:28 87 97 Coding Level of Care Code None Diagnoses Encounter for induction of labor Z34.90 Encounter for supervision of normal first in third trimester Z34.03 Trimester: third trimester Gestational hypertension, third trimester O13.3 Trimester: third trimester
--- NOTE | 2023-12-10 15:37 | Labor Progress Brief Note ---
Date of Service December 10, 2023 Subjective Presented for reevaluation. Assessment & Plan (1) Encounter for induction of labor: Plan: Cervix unchanged from prior exam. Has been dilated to 8 to 9 cm since 530 this morning. Discussed option for section versus continued labor. Reviewed findings to present. Multiple questions answered related to section versus continued labor. Opting to proceed with primary for failure to progress. consents were reviewed and signed. Discussed surgical risks and postoperative expectations. All questions answered. Will plan for Ancef 3 g and azithromycin 500 mg as surgical antibiotic (2) Supervision of normal first : Trimester: third trimester Qualified Code(s): Z34.03 - Encounter for supervision of normal first , third trimester (3) Failed induction of labor: Failed induction of labor type: medical Qualified Code(s): O61.0 - Failed medical induction of labor (4) Failure to progress in labor: Admission and Anticipated Discharge Date Admission Date: December 08, 2023 Physical Exam Genitourinary: Manual OB Exam: + cervical dilation (9), + cervical effacement 100%, + station + 1 and + amniotic fluid clear OB Exam Monitor Tracing: + external FHT monitor used, + external uterine monitor used, + category I and + normal FHT variability; no early decelerations present, no late decelerations present and no variable decelerations Cervix unchanged from prior exam Results & Data Vital Signs (Past 12 Hours) Vital Signs Temp Pulse Resp BP Pulse Ox 12/10/23 15:28 92 H 97 12/10/23 15:23 91 H 97 12/10/23 15:18 107 H 95 12/10/23 15:16 104 H 89 L 12/10/23 15:13 90 97 12/10/23 15:11 93 H 144/84 H 12/10/23 15:08 84 97 12/10/23 15:03 84 97 12/10/23 14:58 84 96 12/10/23 14:57 86 138/82 12/10/23 14:53 86 97 12/10/23 14:50 94 H 92 12/10/23 14:48 110 H 99 12/10/23 14:43 92 H 98 12/10/23 14:38 82 98 12/10/23 14:33 86 98 12/10/23 14:28 81 98 12/10/23 14:27 82 169/85 H 12/10/23 14:23 83 98 12/10/23 14:18 84 97 12/10/23 14:13 77 99 12/10/23 14:11 81 149/76 H 12/10/23 14:08 77 99 12/10/23 14:03 84 98 12/10/23 13:58 87 98 12/10/23 13:56 148/81 H 12/10/23 13:53 88 99 12/10/23 13:48 83 98 12/10/23 13:43 79 97 12/10/23 13:41 77 139/73 12/10/23 13:38 82 97 12/10/23 13:33 85 99 12/10/23 13:28 80 98 12/10/23 13:26 75 145/77 H 12/10/23 13:23 74 96 12/10/23 13:18 75 95 12/10/23 13:13 83 97 12/10/23 13:11 78 136/64 12/10/23 13:08 88 98 12/10/23 13:03 76 98 12/10/23 12:58 77 97 12/10/23 12:56 36.7 C 76 18 140/66 12/10/23 12:53 77 98 12/10/23 12:48 77 98 12/10/23 12:43 81 98 12/10/23 12:41 76 154/72 H 12/10/23 12:38 79 99 12/10/23 12:33 92 H 98 12/10/23 12:28 79 98 12/10/23 12:27 76 138/84 12/10/23 12:23 81 98 12/10/23 12:18 83 99 12/10/23 12:13 78 99 12/10/23 12:11 82 135/70 12/10/23 12:08 94 H 97 12/10/23 12:03 83 99 12/10/23 11:58 76 98 12/10/23 11:56 83 134/72 12/10/23 11:53 77 99 12/10/23 11:48 101 H 98 12/10/23 11:43 90 99 12/10/23 11:41 78 134/61 12/10/23 11:38 80 97 12/10/23 11:33 88 98 12/10/23 11:28 98 12/10/23 11:28 93 H 12/10/23 11:28 78 112/57 L 12/10/23 11:23 87 99 12/10/23 11:18 86 98 12/10/23 11:15 16 12/10/23 11:15 36.9 C 16 12/10/23 11:13 95 H 99 12/10/23 11:12 81 132/71 12/10/23 11:08 80 98 12/10/23 11:03 84 99 12/10/23 10:58 81 97 12/10/23 10:56 86 128/70 12/10/23 10:53 89 98 12/10/23 10:48 82 96 12/10/23 10:43 91 H 98 12/10/23 10:42 93 H 121/60 12/10/23 10:38 89 95 12/10/23 10:35 79 94 12/10/23 10:33 79 95 12/10/23 10:28 80 95 12/10/23 10:27 76 132/73 12/10/23 10:23 78 96 12/10/23 10:18 79 95 12/10/23 10:13 77 97 12/10/23 10:11 76 146/77 H 12/10/23 10:08 79 96 12/10/23 10:03 76 98 12/10/23 09:58 81 98 12/10/23 09:56 75 144/77 H 12/10/23 09:53 79 98 12/10/23 09:48 83 98 12/10/23 09:47 82 131/70 12/10/23 09:43 87 99 12/10/23 09:38 82 99 12/10/23 09:33 80 99 12/10/23 09:28 80 99 12/10/23 09:26 78 135/73 12/10/23 09:23 81 98 12/10/23 09:18 79 98 12/10/23 09:13 88 99 12/10/23 09:12 80 128/68 12/10/23 09:08 93 H 99 12/10/23 09:03 84 97 12/10/23 08:58 87 98 12/10/23 08:56 76 160/96 H 12/10/23 08:53 74 96 12/10/23 08:48 74 96 12/10/23 08:43 75 98 12/10/23 08:42 75 170/97 H 12/10/23 08:38 77 98 12/10/23 08:33 90 98 12/10/23 08:28 89 99 12/10/23 08:27 80 164/98 H 12/10/23 08:23 77 97 12/10/23 08:18 76 98 12/10/23 08:13 87 98 12/10/23 08:12 81 156/98 H 12/10/23 08:08 36.8 C 90 18 98 12/10/23 08:03 89 99 12/10/23 07:58 108 H 98 12/10/23 07:56 83 137/81 12/10/23 07:53 77 98 12/10/23 07:48 79 99 12/10/23 07:43 84 97 12/10/23 07:41 88 141/77 H 12/10/23 07:38 84 99 12/10/23 07:33 91 H 99 12/10/23 07:28 82 97 12/10/23 07:27 78 153/90 H 12/10/23 07:23 84 97 12/10/23 07:18 85 97 12/10/23 07:13 90 97 12/10/23 07:12 89 146/83 H 12/10/23 07:10 20 12/10/23 07:10 36.7 C 20 12/10/23 07:08 86 98 12/10/23 07:03 101 H 98 12/10/23 06:58 87 98 12/10/23 06:56 83 142/77 H 12/10/23 06:53 81 97 12/10/23 06:48 83 98 12/10/23 06:43 88 99 12/10/23 06:41 87 133/68 12/10/23 06:38 86 99 12/10/23 06:33 92 H 98 12/10/23 06:28 93 H 98 12/10/23 06:26 82 127/78 12/10/23 06:23 85 99 12/10/23 06:18 87 100 12/10/23 06:13 83 98 12/10/23 06:11 78 136/81 12/10/23 06:08 77 96 12/10/23 06:03 76 97 12/10/23 05:58 74 96 12/10/23 05:56 79 137/78 12/10/23 05:53 79 96 12/10/23 05:48 76 96 12/10/23 05:43 80 99 12/10/23 05:41 74 137/77 12/10/23 05:38 74 97 12/10/23 05:33 77 97 12/10/23 05:28 81 99 12/10/23 05:27 74 130/71 12/10/23 05:23 79 98 12/10/23 05:18 85 99 12/10/23 05:13 96 H 99 12/10/23 05:11 90 101/73 12/10/23 05:08 88 99 12/10/23 05:03 36.8 C 84 18 98 12/10/23 04:58 75 98 12/10/23 04:56 78 116/62 12/10/23 04:53 81 95 12/10/23 04:48 81 95 12/10/23 04:43 80 96 12/10/23 04:41 81 119/65 12/10/23 04:38 78 96 12/10/23 04:33 76 96 12/10/23 04:28 82 96 12/10/23 04:26 77 121/67 12/10/23 04:23 76 96 12/10/23 04:18 76 96 12/10/23 04:13 76 97 12/10/23 04:11 76 119/64 12/10/23 04:08 80 96 12/10/23 04:03 79 96 12/10/23 03:58 81 98 12/10/23 03:57 78 121/66 12/10/23 03:53 18 12/10/23 03:53 36.9 C 86 18 99 12/10/23 03:48 86 99 12/10/23 03:43 76 96 12/10/23 03:41 77 126/65 12/10/23 03:38 77 96 12/10/23 03:33 77 96 Coding Level of Care Code None Diagnoses Encounter for induction of labor Z34.90 Encounter for supervision of normal first in third trimester Z34.03 Trimester: third trimester Failed medical induction of labor O61.0 Failed induction of labor type: medical Failure to progress in labor O62.2
[2023-12-10] MEDS: ceFAZolin 3000MG 3,000 MG/72.5 ML BAG IV SCH (15:54)
[2023-12-10] MEDS: AZITHROMYCIN 500 MG in DEXTROSE 5% 250 ML IV SCH (16:26)
[2023-12-10] MEDS ORDERED: diphenhydrAMINE 50 MG/ML VIAL IV PRN (17:03)
[2023-12-10] MEDS ORDERED: MEPERIDINE HCL 25 MG/ML CARP/VIAL IV PRN (17:03)
[2023-12-10] MEDS ORDERED: ePHEDrine sulfate 50 MG/ML AMP IV PRN (17:03)
[2023-12-10] MEDS ORDERED: NALOXONE HCL 1 MG in SODIUM CHLORIDE 0.9% 1,000 ML IV PRN (17:03)
[2023-12-10] MEDS ORDERED: ONDANSETRON INJ 2 MG/ML 2 ML VIAL IV PRN (17:03)
[2023-12-10] MEDS ORDERED: NALOXONE HCL 0.4 MG/1 ML VIAL/CARP IV PRN (17:03)
[2023-12-10] MEDS ORDERED: HYDROmorphone INJ 0.5 MG/0.5 ML SYR IV PRN (17:03)
[2023-12-10] MEDS ORDERED: NALBUPHINE HCL 5 MG in SYRINGE 0 ML IV PRN (17:03)
[2023-12-10] MEDS ORDERED: MoRPHine SULFATE PF 1 MG/ML 10 ML AMP/VIAL INT SPINAL ONE (17:03)
[2023-12-10] MEDS ORDERED: LACTATED RINGER'S 500 ML IV PRN (17:03)
[2023-12-10] MEDS ORDERED: NALOXONE HCL 0.08 MG in SYRINGE 1.8 ML IV PRN (17:03)
[2023-12-10] MEDS ORDERED: PROMETHAZINE HCL 6.25 MG in SODIUM CHLORIDE 0.9% 50 ML IV PRN (17:03)
[2023-12-10] MEDS ORDERED: HYDROCORTISONE ACETATE 25 MG SUPP PR PRN (17:07)
[2023-12-10] MEDS ORDERED: DIPHTHER/TETAN/PERTUS Vaccine (Tdap, Adol/Adult) 0.5mL IM ONE (17:07)
[2023-12-10] MEDS ORDERED: SENNA 8.6 MG TAB PO PRN (17:07)
[2023-12-10] MEDS ORDERED: BENZOCAINE 20% SPRY 85 APPLN/85 GM CAN EXT PRN (17:07)
[2023-12-10] MEDS ORDERED: MAGNESIUM HYDROXIDE SUSP 30 ML UDC PO PRN (17:07)
[2023-12-10] MEDS ORDERED: LACTATED RINGER'S 1,000 ML IV SCH (17:15)
[2023-12-10] MEDS ORDERED: DC INTRASPINAL MORPHINE SCH (17:15)
[2023-12-10] MEDS ORDERED: SODIUM CHLORIDE 0.9% 1,000 ML IV SCH (17:15)
[2023-12-10] MEDS ORDERED: NO NARCOTICS OR SEDATIVES SCH (17:15)
--- NOTE | 2023-12-10 17:15 | Operative Report ---
[facility] Post Operative Report Pre & Post Diagnosis Operation Date: 12/10/23 16:30 Pre-Op Diagnosis: TERM , FAILURE TO PROGRESS Post-Op Diagnosis: TERM , FAILURE TO PROGRESS I identified the patient and participated in the time-out.: Yes Procedure Operation Date: 12/10/23 16:30 Actual Procedures p Section in LD with delivery of live male child at 1636 - Tommie Bay MD Surgeon Tommie Bay MD [employer] Nursing staff Estimated Blood Loss 1,214 Findings Consistent with Post-Op Diagnosis Specimens none Description of Procedure Patient was taken the operating room after consent was ensured. Upon presentation she was properly identified. Anesthesia obtained and patient prepped and draped in normal sterile fashion. Preprocedural timeout was performed. A Pfannenstiel incision was made with a knife. This was carried down to underlying fascia with the Bovie and blunt dissection. The fascia was n icked at the midline with a knife and extended laterally with pickups and Meeks scissors. Superior aspect of the fascia was grasped with Piedad's x 2 elevated off the underlying rectus muscles using blunt dissection. Abdominal cavity was entered bluntly and placed on stretch to provide adequate room for delivery. A low transverse uterine incision was made with a knife. Head of the was delivered through the hysterotomy followed by body and shoulders. noted to have good tone at time of delivery and a 30 second delayed cord clamping was initiated after which the cord was double clamped and cut. Baby taken to the waiting nursery staff. Attention was turned to delivery of the placenta which delivered intact with three-vessel cord gentle cord traction. Uterus was exteriorized and several passes were made to remove any remaining membranes with a dry lap. Hysterotomy was reapproximated with 0 Vicryl continuous running lock stitch with a second imbricating layer performed and excellent hemostasis noted. Posterior cul-de-sac cleaned of clots and debris's. Uterus returned maternal abdomen and right left paracolic gutters cleaned of clots and debris's. Hysterotomy remained hemostatic. Subcutaneous fascia and muscle layers inspected noted be hemostatic. Fascia was reapproximated 0 Vicryl continuous running stitch. Subcutaneous layer reapproximated 2 layers using 2-0 plain. Skin reapproximated with 3-0 Vicryl and continuous subcuticular stitch. Dermabond placed on top. Both mother and in stable condition at the completion of the case. Needle sponge and instrument counts correct at the completion of the case I attest to the content of the Intraoperative Record and any orders documented therein. Any exceptions are noted below. OB Procedure Charges [id number]
--- NOTE | 2023-12-10 17:44 | Anesthesia Procedure Note ---
Date of Service December 10, 2023 Anesthesia Post Epidural Note Vital Signs Vital Signs: Temp Pulse Resp BP Pulse Ox 36.7 C 100 H 18 113/57 L 97 12/10/23 12:56 12/10/23 17:38 12/10/23 12:56 12/10/23 17:34 12/10/23 17:38 Pain Intensity Other: Pain Intensity: 5 Notes Mental Status: alert / awake / arousable Nausea / Vomiting: adequately controlled Pain: adequately controlled Airway Patency, RR, SpO2: stable & adequate BP & HR: stable & adequate Hydration State: stable & adequate Neuraxial Anesthesia: was administered and sensory block is resolving Anesthetic Complications: no major complications apparent and Pt Satisfied with anesthetic care Epidural: Removed without complications and With tip intact
--- NOTE | 2023-12-10 17:44 | Anesthesiology Progress Note ---
Date of Service December 10, 2023 Anesthesia Post Procedure Vital Signs Vital Signs: Temp Pulse Resp BP Pulse Ox 12/10/23 17:38 100 H 97 12/10/23 17:34 113 H 113/57 L 12/10/23 17:33 99 H 97 12/10/23 17:28 90 99 12/10/23 17:24 96 H 107/61 12/10/23 17:23 98 H 98 12/10/23 17:18 93 H 98 12/10/23 17:14 100 H 107/58 L 12/10/23 17:13 97 H 99 12/10/23 16:13 92 H 98 12/10/23 16:08 105 H 96 12/10/23 16:03 95 H 96 12/10/23 16:00 93 H 92 12/10/23 15:58 99 H 96 12/10/23 15:57 84 131/71 12/10/23 15:53 89 97 12/10/23 15:50 103 H 93 12/10/23 15:48 93 H 97 12/10/23 15:43 89 97 12/10/23 15:38 90 96 12/10/23 15:37 86 93 12/10/23 15:33 85 96 12/10/23 15:28 92 H 97 12/10/23 15:23 91 H 97 12/10/23 15:18 107 H 95 12/10/23 15:16 104 H 89 L 12/10/23 15:13 90 97 12/10/23 15:11 93 H 144/84 H 12/10/23 15:08 84 97 12/10/23 15:03 84 97 12/10/23 14:58 84 96 12/10/23 14:57 86 138/82 12/10/23 14:53 86 97 12/10/23 14:50 94 H 92 12/10/23 14:48 110 H 99 12/10/23 14:43 92 H 98 12/10/23 14:38 82 98 12/10/23 14:33 86 98 12/10/23 14:28 81 98 12/10/23 14:27 82 169/85 H 12/10/23 14:23 83 98 12/10/23 14:18 84 97 12/10/23 14:13 77 99 12/10/23 14:11 81 149/76 H 12/10/23 14:08 77 99 12/10/23 14:03 84 98 12/10/23 13:58 87 98 12/10/23 13:56 148/81 H 12/10/23 13:53 88 99 12/10/23 13:48 83 98 12/10/23 13:43 79 97 12/10/23 13:41 77 139/73 12/10/23 13:38 82 97 12/10/23 13:33 85 99 12/10/23 13:28 80 98 12/10/23 13:26 75 145/77 H 12/10/23 13:23 74 96 12/10/23 13:18 75 95 12/10/23 13:13 83 97 12/10/23 13:11 78 136/64 12/10/23 13:08 88 98 12/10/23 13:03 76 98 12/10/23 12:58 77 97 12/10/23 12:56 36.7 C 76 18 140/66 12/10/23 12:53 77 98 12/10/23 12:48 77 98 12/10/23 12:43 81 98 12/10/23 12:41 76 154/72 H 12/10/23 12:38 79 99 12/10/23 12:33 92 H 98 12/10/23 12:28 79 98 12/10/23 12:27 76 138/84 12/10/23 12:23 81 98 12/10/23 12:18 83 99 12/10/23 12:13 78 99 12/10/23 12:11 82 135/70 12/10/23 12:08 94 H 97 12/10/23 12:03 83 99 12/10/23 11:58 76 98 12/10/23 11:56 83 134/72 12/10/23 11:53 77 99 12/10/23 11:48 101 H 98 12/10/23 11:43 90 99 12/10/23 11:41 78 134/61 12/10/23 11:38 80 97 12/10/23 11:33 88 98 12/10/23 11:28 98 12/10/23 11:28 93 H 12/10/23 11:28 78 112/57 L 12/10/23 11:23 87 99 12/10/23 11:18 86 98 12/10/23 11:15 16 12/10/23 11:15 36.9 C 16 12/10/23 11:13 95 H 99 12/10/23 11:12 81 132/71 12/10/23 11:08 80 98 12/10/23 11:03 84 99 12/10/23 10:58 81 97 12/10/23 10:56 86 128/70 12/10/23 10:53 89 98 12/10/23 10:48 82 96 12/10/23 10:43 91 H 98 12/10/23 10:42 93 H 121/60 12/10/23 10:38 89 95 12/10/23 10:35 79 94 12/10/23 10:33 79 95 12/10/23 10:28 80 95 12/10/23 10:27 76 132/73 12/10/23 10:23 78 96 12/10/23 10:18 79 95 12/10/23 10:13 77 97 12/10/23 10:11 76 146/77 H 12/10/23 10:08 79 96 12/10/23 10:03 76 98 12/10/23 09:58 81 98 12/10/23 09:56 75 144/77 H 12/10/23 09:53 79 98 12/10/23 09:48 83 98 12/10/23 09:47 82 131/70 12/10/23 09:43 87 99 12/10/23 09:38 82 99 12/10/23 09:33 80 99 12/10/23 09:28 80 99 12/10/23 09:26 78 135/73 12/10/23 09:23 81 98 12/10/23 09:18 79 98 12/10/23 09:13 88 99 12/10/23 09:12 80 128/68 12/10/23 09:08 93 H 99 12/10/23 09:03 84 97 12/10/23 08:58 87 98 12/10/23 08:56 76 160/96 H 12/10/23 08:53 74 96 12/10/23 08:48 74 96 12/10/23 08:43 75 98 12/10/23 08:42 75 170/97 H 12/10/23 08:38 77 98 12/10/23 08:33 90 98 12/10/23 08:28 89 99 12/10/23 08:27 80 164/98 H 12/10/23 08:23 77 97 12/10/23 08:18 76 98 12/10/23 08:13 87 98 12/10/23 08:12 81 156/98 H 12/10/23 08:08 36.8 C 90 18 98 12/10/23 08:03 89 99 12/10/23 07:58 108 H 98 12/10/23 07:56 83 137/81 12/10/23 07:53 77 98 12/10/23 07:48 79 99 12/10/23 07:43 84 97 12/10/23 07:41 88 141/77 H 12/10/23 07:38 84 99 12/10/23 07:33 91 H 99 12/10/23 07:28 82 97 12/10/23 07:27 78 153/90 H 12/10/23 07:23 84 97 12/10/23 07:18 85 97 12/10/23 07:13 90 97 12/10/23 07:12 89 146/83 H 12/10/23 07:10 20 12/10/23 07:10 36.7 C 20 12/10/23 07:08 86 98 12/10/23 07:03 101 H 98 12/10/23 06:58 87 98 12/10/23 06:56 83 142/77 H 12/10/23 06:53 81 97 12/10/23 06:48 83 98 12/10/23 06:43 88 99 12/10/23 06:41 87 133/68 12/10/23 06:38 86 99 12/10/23 06:33 92 H 98 12/10/23 06:28 93 H 98 12/10/23 06:26 82 127/78 12/10/23 06:23 85 99 12/10/23 06:18 87 100 12/10/23 06:13 83 98 12/10/23 06:11 78 136/81 12/10/23 06:08 77 96 12/10/23 06:03 76 97 12/10/23 05:58 74 96 12/10/23 05:56 79 137/78 12/10/23 05:53 79 96 12/10/23 05:48 76 96 12/10/23 05:43 80 99 12/10/23 05:41 74 137/77 12/10/23 05:38 74 97 12/10/23 05:33 77 97 12/10/23 05:28 81 99 12/10/23 05:27 74 130/71 12/10/23 05:23 79 98 12/10/23 05:18 85 99 12/10/23 05:13 96 H 99 12/10/23 05:11 90 101/73 12/10/23 05:08 88 99 12/10/23 05:03 36.8 C 84 18 98 12/10/23 04:58 75 98 12/10/23 04:56 78 116/62 12/10/23 04:53 81 95 12/10/23 04:48 81 95 12/10/23 04:43 80 96 12/10/23 04:41 81 119/65 12/10/23 04:38 78 96 12/10/23 04:33 76 96 12/10/23 04:28 82 96 12/10/23 04:26 77 121/67 12/10/23 04:23 76 96 12/10/23 04:18 76 96 12/10/23 04:13 76 97 12/10/23 04:11 76 119/64 12/10/23 04:08 80 96 12/10/23 04:03 79 96 12/10/23 03:58 81 98 12/10/23 03:57 78 121/66 12/10/23 03:53 18 12/10/23 03:53 36.9 C 86 18 99 12/10/23 03:48 86 99 12/10/23 03:43 76 96 12/10/23 03:41 77 126/65 12/10/23 03:38 77 96 12/10/23 03:33 77 96 12/10/23 03:28 82 97 12/10/23 03:27 75 131/69 12/10/23 03:23 80 98 12/10/23 03:18 82 98 12/10/23 03:13 87 99 12/10/23 03:11 74 127/68 12/10/23 03:08 86 99 12/10/23 03:03 87 99 12/10/23 02:58 79 96 12/10/23 02:56 80 126/58 L 12/10/23 02:53 88 99 12/10/23 02:48 89 98 12/10/23 02:43 90 97 12/10/23 02:41 85 126/68 12/10/23 02:38 80 96 12/10/23 02:33 84 95 12/10/23 02:28 84 95 12/10/23 02:27 86 94 12/10/23 02:26 80 117/60 12/10/23 02:23 83 94 12/10/23 02:22 81 94 12/10/23 02:18 83 94 12/10/23 02:16 82 94 12/10/23 02:13 81 95 12/10/23 02:11 83 114/57 L 94 12/10/23 02:08 82 95 12/10/23 02:06 77 94 12/10/23 02:03 84 95 12/10/23 01:58 82 95 12/10/23 01:56 78 117/62 12/10/23 01:53 86 95 12/10/23 01:48 83 96 12/10/23 01:43 86 97 12/10/23 01:41 82 119/61 12/10/23 01:38 86 98 12/10/23 01:33 88 97 12/10/23 01:28 87 97 12/10/23 01:27 92 H 111/68 12/10/23 01:23 91 H 97 12/10/23 01:18 83 97 12/10/23 01:13 79 97 12/10/23 01:11 77 128/66 12/10/23 01:08 77 98 12/10/23 01:03 85 97 12/10/23 01:02 18 12/10/23 01:02 36.9 C 18 12/10/23 00:58 80 97 12/10/23 00:56 86 140/74 12/10/23 00:53 96 H 96 12/10/23 00:52 86 92 12/10/23 00:48 83 98 12/10/23 00:43 102 H 97 12/10/23 00:42 81 134/64 12/10/23 00:38 87 96 12/10/23 00:33 90 98 12/10/23 00:28 87 97 12/10/23 00:26 83 127/63 12/10/23 00:23 96 H 98 12/10/23 00:18 87 98 12/10/23 00:13 83 97 12/10/23 00:11 82 118/55 L 12/10/23 00:10 85 91 12/10/23 00:08 86 97 12/10/23 00:03 96 H 98 12/09/23 23:58 93 H 96 12/09/23 23:56 88 124/62 12/09/23 23:53 87 95 12/09/23 23:48 82 95 12/09/23 23:45 85 94 12/09/23 23:43 86 95 12/09/23 23:41 82 103/53 L 12/09/23 23:38 82 96 12/09/23 23:33 87 95 12/09/23 23:28 88 95 12/09/23 23:26 85 123/63 12/09/23 23:23 94 H 97 12/09/23 23:18 82 96 12/09/23 23:13 93 H 97 12/09/23 23:12 88 120/60 12/09/23 23:08 87 97 12/09/23 23:06 37.0 C 18 12/09/23 23:03 88 95 12/09/23 22:58 85 95 12/09/23 22:56 84 131/68 12/09/23 22:53 88 96 12/09/23 22:48 88 96 12/09/23 22:43 82 97 12/09/23 22:41 81 135/73 12/09/23 22:38 89 98 12/09/23 22:33 87 97 12/09/23 22:28 89 97 12/09/23 22:27 86 129/77 12/09/23 22:23 104 H 97 12/09/23 22:18 89 98 12/09/23 22:13 88 98 12/09/23 22:11 86 140/78 12/09/23 22:08 88 98 12/09/23 22:03 82 97 12/09/23 21:58 82 98 12/09/23 21:56 85 137/79 12/09/23 21:53 85 98 12/09/23 21:48 86 98 12/09/23 21:43 90 97 12/09/23 21:42 84 134/68 12/09/23 21:38 93 H 98 12/09/23 21:33 93 H 99 12/09/23 21:28 95 H 98 12/09/23 21:26 86 131/62 12/09/23 21:23 87 99 12/09/23 21:18 83 98 12/09/23 21:13 90 99 12/09/23 21:11 86 131/60 12/09/23 21:09 18 12/09/23 21:09 36.8 C 18 12/09/23 21:08 94 H 99 12/09/23 21:03 96 H 99 12/09/23 20:58 87 98 12/09/23 20:56 83 134/78 12/09/23 20:53 85 96 12/09/23 20:48 82 98 12/09/23 20:43 78 99 12/09/23 20:42 80 131/77 12/09/23 20:38 80 99 12/09/23 20:33 81 100 12/09/23 20:28 89 99 12/09/23 20:26 77 134/75 12/09/23 20:23 83 99 12/09/23 20:18 82 98 12/09/23 20:13 82 99 12/09/23 20:11 84 131/63 12/09/23 20:08 89 99 12/09/23 20:03 80 99 12/09/23 19:58 83 98 12/09/23 19:57 82 132/87 12/09/23 19:53 80 99 12/09/23 19:48 83 98 12/09/23 19:43 85 99 12/09/23 19:42 85 127/67 12/09/23 19:38 80 98 12/09/23 19:33 89 99 12/09/23 19:28 83 99 12/09/23 19:26 83 120/61 12/09/23 19:23 86 99 12/09/23 19:18 82 100 12/09/23 19:15 86 128/69 12/09/23 19:13 95 H 98 12/09/23 19:10 36.7 C 18 12/09/23 19:08 83 99 12/09/23 19:03 84 98 12/09/23 18:58 87 98 07/16/24 18:53 82 99 12/09/23 18:48 95 H 98 12/09/23 18:43 82 158/96 H 98 12/09/23 18:38 84 99 12/09/23 18:33 91 H 98 12/09/23 18:28 89 98 12/09/23 18:26 85 128/65 12/09/23 18:23 86 98 12/09/23 18:20 18 12/09/23 18:20 36.8 C 18 12/09/23 18:18 93 H 98 12/09/23 18:13 85 98 12/09/23 18:11 80 140/78 12/09/23 18:08 94 H 99 12/09/23 18:03 87 99 12/09/23 17:58 79 100 12/09/23 17:57 75 138/79 12/09/23 17:53 83 98 12/09/23 17:48 80 98 Pain Intensity Other: Pain Intensity: 5 Transfer of Care Handoff Completed per policy Notes Mental Status: alert / awake / arousable Patient Amnestic to Procedure: Yes Nausea / Vomiting: adequately controlled Pain: adequately controlled Airway Patency, RR, SpO2: stable & adequate BP & HR: stable & adequate Hydration State: stable & adequate Neuraxial Anesthesia: was administered and sensory block is resolving Anesthetic Complications: no major complications apparent and Pt Satisfied with anesthetic care
[2023-12-10] MEDS: OXYTOCIN 20 UNITS/LR 1,002 ML IV SCH (17:53)
[2023-12-10] MEDS: CITRIC ACID/SODIUM CITRATE 15 ML UDC PO SCH (17:57)
[2023-12-10] MEDS: MoRPHine SULFATE 2 MG/ML CARP IV PRN (20:56)
[2023-12-10] MEDS: DOCUSATE SODIUM 100 MG CAP PO SCH (20:57)
[2023-12-10] MEDS: SIMETHICONE 80 MG CHEW PO SCH (20:57)
[2023-12-11] MEDS: KETOROLAC 30 MG/ML VIAL IV PRN (00:35)
--- NOTE | 2023-12-11 06:18 | Obstetrical Progress Note ---
Date of Service <Asim De Santiago DO - Last Filed: 12/11/23 07:22> December 11, 2023 Assessment & Plan <Asim De Santiago DO - Last Filed: 12/11/23 07:22> (1) Encounter for assessment: Patient is PPD 1 s/p pLTCS and doing well - Eating well, voiding well, ambulating well - ordered bilateral duplex US for increased pain and tenderness in bilateral calves and groin - vitals reviewed and within normal limits - pain well controlled with analgesics - OOB, ambulation, diet progression as tolerated - Blood type: A+, GBS neg, rubella immune - Plan to discharge tomorrow - After discharge, 6 week follow up with OB visit type: exam and care immediately after delivery Qualified Code(s): Z39.0 - Encounter for care and examination of mother immediately after delivery <Tommie Bay MD - Last Filed: 12/11/23 07:32> (1) Encounter for assessment: Subjective <Asim De Santiago DO - Last Filed: 12/11/23 07:22> 33 yo post- day 1 s/p pLTCS Ambulation: ambulating normally Voiding: no voiding problems Passing Gas:: Yes Diet Tolerance:: progressing diet to solids, w nausea and minimal vomiting Lochia:: Small Feeding Type:: breast feeding Current Pain Level: 3-5/10 Resting comfortably this AM in NAD. Denies COLLADO, CP, SOB, N/V/D, LE pain/swelling. Physical Exam <Asim De Santiago DO - Last Filed: 12/11/23 07:22> General: patient resting comfortably, NAD, non-toxic in appearance, answers questions appropriately. Skin: warm, dry, intact HEENT: NC/AT, anicteric sclera, conjunctiva without injection, moist mucus membranes. Heart: +S1/S2, regular, no m/r/g Lungs: equal air entry bilaterally, no rales/rhonchi/wheezes Abd: +BS, soft, NT/ND, uterine fundus firm at umbilicus, caesarean incision healing and w/o erythema Ext: warm, no clubbing/cyanosis or edema, increased pain and tenderness in bilateral calves and right groin. Neuro: nonfocal, speech intact, no facial droop, moving all extremities. Results & Data <Asim Jonnathan, DO - Last Filed: 12/11/23 07:22> Vital Signs (Past 12 Hours) Vital Signs Temp Pulse Pulse Resp BP BP Pulse Ox 12/11/23 05:05 18 94 12/11/23 04:20 18 98 12/11/23 04:20 36.7 C 84 18 133/87 98 12/11/23 03:15 16 94 12/11/23 02:20 16 93 12/11/23 01:15 16 94 12/11/23 00:20 18 96 12/11/23 00:20 36.8 C 82 18 135/80 96 12/10/23 23:20 18 96 12/10/23 22:15 18 96 12/10/23 21:20 18 96 12/10/23 20:10 18 96 12/10/23 19:45 18 96 12/10/23 19:45 36.9 C 87 18 122/78 96 12/10/23 19:23 88 98 12/10/23 19:18 88 96 12/10/23 19:17 83 18 121/65 12/10/23 19:13 88 95 12/10/23 19:08 86 97 12/10/23 19:03 87 97 12/10/23 19:02 92 H 120/61 12/10/23 18:58 89 97 12/10/23 18:53 90 97 12/10/23 18:48 85 98 12/10/23 18:47 83 120/61 12/10/23 18:43 80 98 12/10/23 18:38 89 99 12/10/23 18:33 88 99 12/10/23 18:32 81 118/57 L 12/10/23 18:28 85 98 12/10/23 18:23 86 98 12/10/23 18:18 83 99 12/10/23 18:17 84 124/64 O2 Del Method 12/11/23 05:05 12/11/23 04:20 12/11/23 04:20 Room Air 12/11/23 03:15 12/11/23 02:20 12/11/23 01:15 12/11/23 00:20 12/11/23 00:20 Room Air 12/10/23 23:20 12/10/23 22:15 12/10/23 21:20 12/10/23 20:10 12/10/23 19:45 12/10/23 19:45 Room Air 12/10/23 19:23 12/10/23 19:18 12/10/23 19:17 12/10/23 19:13 12/10/23 19:08 12/10/23 19:03 12/10/23 19:02 12/10/23 18:58 12/10/23 18:53 12/10/23 18:48 12/10/23 18:47 12/10/23 18:43 12/10/23 18:38 12/10/23 18:33 12/10/23 18:32 12/10/23 18:28 12/10/23 18:23 12/10/23 18:18 12/10/23 18:17 Supervising Physician <Tommie Bay MD - Last Filed: 12/11/23 07:32> Co-Signing Physician Notes Patient seen with resident and agree with the above findings and plan. Will order a lower extremity Doppler for persistent calf tenderness. Estimated QBL at surgery was over 1200 mL. This is likely a gross overestimation due to free fluid and amniotic fluid sectioned out of posterior cul-de-sac which was likely at least 300 to 400 mL. Actual blood loss was likely closer to 800 mL. No increased bleeding noted at time of surgery and overall blood loss seemed very normal. In addition, no significant uterine atony noted Resident Activity Tracking <Asim De Santiago DO - Last Filed: 12/11/23 07:22> Resident Involvement: Resident Care Provided Care Provided: OB Delivery
[2023-12-11 06:31] LABS: Hematocrit (blood only) 26.7 % (37.0-47.0); Hemoglobin 9.1 g/dl (12.0-16.0)
[2023-12-11] MEDS: LACTATED RINGER'S 1,000 ML IV ONE (07:20)
--- NOTE | 2023-12-11 08:40 | Ultrasound Report ---
BILATERAL LOWER EXTREMITY VENOUS DOPPLER CLINICAL HISTORY: Bilateral calf pain and tenderness COMPARISON STUDY: No previous studies for comparison. TECHNIQUE: Sonography of the deep venous system of the bilateral lower extremities was performed. Co mpression and augmentation were evaluated. FINDINGS: The bilateral common femoral, superficial femoral and popliteal veins were compressible. A ugmentation was normal. Flow was shown within the deep calf vessels. IMPRESSION: No evidence of deep venous thrombus within the bilateral lower extremities. ACT 112: Negative or not required by law. Electronically signed by: Yasmani Allen M.D. 12/11/2023 8:39 AM
[2023-12-11] MEDS: FERROUS SULFATE 325 MG TAB PO SCH (10:05)
[2023-12-11] MEDS: PRENATAL VITAMIN 1 TAB PO SCH (10:06)
[2023-12-11] MEDS ORDERED: ACETAMINOPHEN 1,000 MG/100 ML VIAL IV PRN (10:10)
[2023-12-11] MEDS ORDERED: ONDANSETRON INJ 2 MG/ML 2 ML VIAL IV PRN (11:03)
[2023-12-11] MEDS ORDERED: KETOROLAC 30 MG/ML VIAL IV PRN (11:03)
[2023-12-11] MEDS ORDERED: oxyCODONE/ACETAMINOPHEN 5mg/325mg TAB PO PRN (11:03)
[2023-12-11] MEDS ORDERED: PROMETHAZINE HCL 25 MG in SODIUM CHLORIDE 0.9% 50 ML IV PRN (11:03)
[2023-12-11] MEDS ORDERED: diphenhydrAMINE 50 MG/ML VIAL IV PRN (11:03)
[2023-12-11] MEDS ORDERED: diphenhydrAMINE Capsule 25 MG CAP PO PRN (11:03)
[2023-12-11] MEDS: IBUPROFEN 600 MG TAB PO PRN (12:30)
[2023-12-11] MEDS: ACETAMINOPHEN 325 MG TAB PO PRN (12:30)
[2023-12-11] MEDS ORDERED: bisacodyL 5 MG TABEC PO SCH (20:00)
[2023-12-11] MEDS: bisacodyL 5 MG TABEC PO SCH (21:44)
[2023-12-12 16:55] LABS: Hematocrit (blood only) 23.5 % (37.0-47.0)
[2023-12-12] MEDS ORDERED: bisacodyL 10 MG SUPP PR PRN (17:07)
[2023-12-13] MEDS: NIFEdipine EXTENDED REL 30 MG TABCR PO STA (06:41)
--- NOTE | 2023-12-13 08:35 | Obstetrical Progress Note ---
Date of Service <Asim De Santiago DO - Last Filed: 12/13/23 08:39> December 13, 2023 Assessment & Plan <Asim De Santiago DO - Last Filed: 12/13/23 08:39> (1) Encounter for assessment: Patient is POD 3 s/p pLTCS and doing well - Eating well, voiding well, ambulating well - 1 dose of procardia XL 30 mg given to help control BP 152/100 this AM - all other vitals reviewed and within normal limits - pain well controlled with analgesics - OOB, ambulation, diet progression as tolerated - Blood type: A+, GBS neg, rubella immune - Plan to discharge today - After discharge, follow up within 1 week to recheck blood pressure - Next follow up in 6 weeks with OB visit type: exam and care immediately after delivery Qualified Code(s): Z39.0 - Encounter for care and examination of mother immediately after delivery <Sherrill Hoyt MD - Last Filed: 12/15/23 10:28> (1) Encounter for assessment: Subjective <Asim De Santiago DO - Last Filed: 12/13/23 08:39> 33 yo post-operative day 3 s/p Ambulation: ambulating normally Voiding: no voiding problems Passing Gas:: Yes Diet Tolerance:: regular diet Lochia:: Small Feeding Type:: breast feeding Current Pain Level: 2/10 Resting comfortably this AM in NAD. Denies COLLADO, CP, SOB, N/V/D, LE pain/swelling. Physical Exam <Asim De Santiago DO - Last Filed: 12/13/23 08:39> General: patient resting comfortably, NAD, non-toxic in appearance, answers questions appropriately. Skin: warm, dry, intact HEENT: NC/AT, anicteric sclera, conjunctiva without injection, moist mucus membranes. Heart: +S1/S2, regular, no m/r/g Lungs: equal air entry bilaterally, no rales/rhonchi/wheezes Abd: +BS, soft, NT/ND, uterine fundus firm at umbilicus, caesarean incision clean and w/o erythema Ext: warm, no clubbing/cyanosis or edema, no swelling/tenderness in LE, no groin pain Neuro: nonfocal, speech intact, no facial droop, moving all extremities. Results & Data <Asim De Santiago DO - Last Filed: 12/13/23 08:39> Vital Signs (Past 12 Hours) Vital Signs Temp Pulse Resp BP 12/13/23 06:09 77 152/100 H 12/13/23 04:07 36.4 C L 75 16 155/95 H Supervising Physician <Sherrill Hoyt MD - Last Filed: 12/15/23 10:28> Co-Signing Physician Notes Resident Physician Supervision Note: I interviewed and examined the patient. Discussed with Dr. De Santiago and agree with findings and plan as documented in the note. Any exceptions or clarifications are listed here: [ ] Documented By: Sherrill Hoyt MD, FACOG Resident Activity Tracking <Asim De Santiago DO - Last Filed: 12/13/23 08:39> Resident Involvement: Resident Care Provided Care Provided: OB Delivery
[2023-12-13 09:26] LABS: Albumin Globulin Ratio 1.3 (0.9-2); Albumin Level 3.4 gm/dl (3.4-5.0); BUN Creatinine Ratio 8.5 (10-20); Bilirubin,Total 0.2 mg/dl (0.2-1.0); Calcium 8.2 mg/dl (8.6-10.3); Est GFR (African American) 138.6 ml/min; Est GFR (Non-African American) 119.6 ml/min; Globulin 2.6 gm/dl (2.5-4.0); Potassium 4.1 mmol/L (3.5-5.1)
[2023-12-13 09:38] LABS: Hematocrit (blood only) 26.2 % (37.0-47.0); Hemoglobin 8.8 g/dl (12.0-16.0); Mean Corpuscular Hemoglobin 29.6 pg (25.0-34.0); Mean Corpuscular Hgb Conc 33.6 g/dL (32.0-36.0); Mean Corpuscular Volume 88.2 fL (80.0-100.0); Mean Platelet Volume 11.5 fL (9.4-12.4); Platelet Count 217 K/uL (130-400); RDW Coefficient of Variation 14.9 % (11.5-14.5); RDW Standard Deviation 47.8 fL (36.4-46.3); Red Blood Count 2.97 M/uL (4.20-5.40); White Blood Count 8.14 K/ul (4.8-10.8)
--- NOTE | 2023-12-13 10:42 | Communication Note ---
Date of Service: December 13, 2023 AST is mildly elevated at 47. All other labs are wnl. Patient continues to be asymptomatic. Repeat labs in 6 hours. Just got first dose of procardia this am.
--- NOTE | 2023-12-13 12:01 | Communication Note ---
Date of Service: December 13, 2023 Patient feels well. She has no s/s of pet. Unfortunately, we have not had a good response to her Procardia. Mostly 150s/low 100s, did have a 169/105. I had labs drawn this am around and all were normal except her AST is mildly elevated at 47 (13-39). So I am a bit concerned that she is developing pet but the picture is knox. She feels her blood pressures are elevated because of stresss and poor sleep. Discussed this would not change her labs. Dr. Hoyt did not choose labatelol because pulse in 70s. Long discussion with patient and FOB The most conservative and "safest" treatment would be to assume developing pet and treat with mag now. r/b/se and hospital course of that is discussed. Also offered repeat blood pressure. If more reasonable, then could recheck labs in 6 hours. If normal or trending down and bps ok, could then consider d/c with very close f/u in the office. If labs trending up or still a severe range blood pressure then would recommend mag at that time. Discussed worst case senario would be eeclampsia and what that would mean. Will recheck blood pressure in 15-20 minutes and reassess.
--- NOTE | 2023-12-13 12:29 | Communication Note ---
Date of Service: December 13, 2023 Blood pressure 160/109 after taking sitting with feet on the floor for 20 minutes. Plan to transfer to L&D for Mag treatment.
[2023-12-13] MEDS: MAG SULFATE 6GM BOLUS FROM BAG IV ONE (13:57)
[2023-12-13] MEDS: MAGNESIUM SULFATE / WTR 40 GM/1,000 ML BAG IV SCH (13:57)
[2023-12-13 16:29] LABS: Hematocrit (blood only) 25.8 % (37.0-47.0); Hemoglobin 8.6 g/dl (12.0-16.0); Mean Corpuscular Hemoglobin 29.5 pg (25.0-34.0); Mean Corpuscular Hgb Conc 33.3 g/dL (32.0-36.0); Mean Corpuscular Volume 88.4 fL (80.0-100.0); Mean Platelet Volume 10.8 fL (9.4-12.4); Platelet Count 240 K/uL (130-400); RDW Coefficient of Variation 15.1 % (11.5-14.5); RDW Standard Deviation 48.8 fL (36.4-46.3); Red Blood Count 2.92 M/uL (4.20-5.40); White Blood Count 7.67 K/ul (4.8-10.8)
[2023-12-13 16:39] LABS: Albumin Globulin Ratio 1.2 (0.9-2); Albumin Level 3.3 gm/dl (3.4-5.0); BUN Creatinine Ratio 6.7 (10-20); Bilirubin,Total 0.2 mg/dl (0.2-1.0); Calcium 8.1 mg/dl (8.6-10.3); Creatinine Clr Calc Pharmacy 144.5 ml/min; Est GFR (African American) 137.8 ml/min; Est GFR (Non-African American) 118.9 ml/min; Globulin 2.7 gm/dl (2.5-4.0); Potassium 4.2 mmol/L (3.5-5.1)
[2023-12-13] MEDS: LABETALOL HCL 100 MG TAB ONE (22:00)
[2023-12-14] MEDS: LABETALOL HCL 100 MG TAB PO ONE (01:12)
[2023-12-14] MEDS: LACTATED RINGER'S 1,000 ML IV SCH (02:00)
[2023-12-14] MEDS: ZOLPIDEM TARTRATE 5 MG TAB PO PRN (02:25)
[2023-12-14] MEDS: LABETALOL HCL 200 MG TAB PO SCH (08:19)
--- NOTE | 2023-12-14 08:25 | Obstetrical Progress Note ---
Date of Service December 14, 2023 Assessment & Plan (1) Preeclampsia: Plan continue mag for 24 hours, off at 2pm. No s/s of pet. Labs last night were stable. excellent uop. bps are labile and will require treatment. Plan labetolol 200mg bid as the procardia did not do much for her yesterday. Will continue to monitor closely. Subjective Ambulation: limited ambulation Voiding: encinas catheter in place Passing Gas:: Yes Diet Tolerance:: clear liquids Feeding Type:: breast feeding Patient got very restless and anxious last night. Got Ambien and was able to sleep. Feeling pretty well this am Notes no s/s of pet. Has had over 6 liters of urine output overnight. she notes her legs feel less tight. BPs have been very labile. Got a dose of labetolol last night 10mmg for a bp of 160 and that treated that very well. Her pressures have been quite labile 130/70 to most recent of 163/94. Physical Exam Constitutional WD/WN, vitals as above Cardiovascular Rate/Rhythm: regular rate and regular rhythm Extremities: + edema (+1 but improved); no calf tenderness Gastrointestinal (Abdomen) soft, nt,nd ff/nt at u incision c/d/i Results & Data Vital Signs (Past 12 Hours) Vital Signs Pulse Resp BP Pulse Ox 12/14/23 07:47 100 H 163/94 H 12/14/23 06:47 105 H 156/85 H 12/14/23 06:44 16 12/14/23 05:47 105 H 158/94 H 12/14/23 05:17 16 12/14/23 04:47 76 123/67 12/14/23 04:04 12/14/23 03:47 76 128/66 12/14/23 02:47 94 H 144/75 H 12/14/23 02:31 18 12/14/23 02:00 18 12/14/23 01:47 98 H 157/77 H 12/14/23 01:00 18 12/14/23 00:47 92 H 140/82 12/14/23 00:00 18 12/13/23 23:54 18 12/13/23 23:47 91 H 142/73 H 12/13/23 23:00 18 12/13/23 22:47 82 123/67 12/13/23 22:00 18 12/13/23 21:59 103 H 151/87 H 12/13/23 21:57 100 H 99 12/13/23 21:52 102 H 96 12/13/23 21:46 101 H 160/84 H 12/13/23 21:45 100 H 166/98 H 12/13/23 21:25 104 H 173/94 H 12/13/23 21:00 18
--- NOTE | 2023-12-14 14:57 | Communication Note ---
Date of Service: December 14, 2023 d/c Mag now and will move back to floor. Recent blood pressures over the last couple of hours have been high 150s/80-90. therefore, increasing labetolol dose to 300mg for this pm dose. Patient and her are disappointed they cannot be d/c. I did explain to them when I was counseling them on the course and plan for the mag that after turning off the mag, we would need to monitor blood pressures for several hours so we could get the right dose of antihypertensive. I did tell them that they would likely need to spend the night afterwards. Ad ditionally, I just increased dose that she will be getting tonight given systolics in the high 150s. Explained the rationale to them again. She expresses understanding.
[2023-12-14] MEDS: LABETALOL HCL 300 MG TAB PO SCH (18:45)
--- NOTE | 2023-12-15 03:19 | Communication Note ---
Date of Service: December 15, 2023 [facility] because of change in status. Patient had been dozing and then was awoken by some uterine cramping. Upon wanting to change position, she then started noting some muscle spasms in her upper legs. She then complained of feeling anxious and concerned. While I was in the room this turned to all over body shakes and increase in anxiety as she wondered if this was the start of a seizure. I felt the shaking in leg and not at all consistent with the grand mal seuzure that occurs with pet. BP taken during this episode and elevated but I suspect mostly from anxiety as I feel this subsequently progressed into an full blown anxiety attack. She does not complain of any other s/s of pet--no sob/cp/coreas/vision changes. After lying back down and taking some large breaths and reassurance from me, she was able to calm down and noted she was feeling better. The shaking stopped. REassured patient that this was likely a panic attack and not surprising given all that has happened to the patient over the last 7 days and the anxiety she has felt over the diagnosis of her preeclampsia. Patient was awake, alert and talking to me throughout the whole episode. Plan to get up to the BR and then was given an ambien to help rest/sleep as this worked well for her last night Will likely need to d/c later today even if her blood pressure is a little higher than I would like in a perfect world as the longer she is here the more anxious she is becoming.
[2023-12-15] MEDS: LABETALOL HCL 300 MG TAB PO SCH (08:50)
--- NOTE | 2023-12-15 08:56 | Obstetrical Progress Note ---
Date of Service December 15, 2023 Assessment & Plan (1) Preeclampsia: (2) Encounter for assessment: visit type: exam and care immediately after delivery Qualified Code(s): Z39.0 - Encounter for care and examination of mother immediately after delivery Plan postoperatively doing well. I really think her elevated blood pressures are now being affected by her anxiety. She did have a panic attack last night. elevated blood pressure today but totally asymptomatic. She readily admits she is starting to go crazy with everything. Will give meds now and make sure she has appropriate response. Increase labetolol to tid dosing. I do not suspect worsening disease. Her edema has completely resolved. Will plan d/c with very close f/u with blood pressure check on with me in the office. I suspect once at home and in a more normal environment, pressures will improve and anxiety will lessen. s/s of pet have been throughly reviewed with the patient. To call with any concerns or questions. Subjective Ambulation: ambulating normally Voiding: no voiding problems Passing Gas:: Yes Diet Tolerance:: regular diet Lochia:: Small Feeding Type:: breast feeding Patient was able to get some rest last night. Is really feeling quite well this am. no s/s of pet. Really anxious to get home. She admits, she continues to be very anxious judith with her blood pressure taking. I saw patient just after she had seen peds. Her blood pressure was elevated 170/109 but I feel that this is mainly a reaction to the anxiety when her blood pressure is obtained. Physical Exam Constitutional WD/WN, vitals as above Cardiovascular Extremities: no calf tenderness and no edema Gastrointestinal (Abdomen) soft, nt, nd ff/nt 2 below u incision--c/d/i Neurologic patellar DTR's 2+ bilat, sensation intact Results & Data Vital Signs (Past 12 Hours) Vital Signs Temp Pulse Resp BP Pulse Ox 12/15/23 03:32 80 18 162/96 H 12/15/23 02:50 36.7 C 100 H 20 156/110 H 98 12/14/23 23:30 36.9 C 79 16 148/90 H 98
[2023-12-15] MEDS: NIFEdipine EXTENDED REL 30 MG TABCR PO STA (13:13)
--- NOTE | 2023-12-17 10:27 | Discharge Summary ---
Date of Service December 17, 2023 Admission HPI Per Admitting Provider 33yo at 41+wks egenma presents to LD for planned cervical dilator for unfavorable cx at term. No rom, vb. +FM. No ctx. PNC c/b 1. postdates PNL rh pos, ri, gbs neg OBH: g1 GYNH: nl paps no stds Discharge Data Consultations 12/08/23 22:31 Consult Anesthesiology Stat Procedures Performed Operation Date: 12/10/23 16:30 Actual Procedures p Section in LD with delivery of live male child at 1636 - [place] MD Hospital Course (1) Preeclampsia: Kacie underwent an induction of labor for gestational hypertension. She ultimately had a primary low-transverse for failure to progress past 8 to 9 cm. Procedure was performed without complication. Developed preeclampsia on day 3 and was started on magnesium. Was discharged home in stable condition on day 5 on labetalol 300 mg 3 times daily. Provided both written and verbal discharge instructions with plan for follow-up for blood pressure check (2) Encounter for assessment: (3) Failure to progress in labor: (4) Failed induction of labor: Coding Level of Care Code None Diagnoses Preeclampsia O14.90 Encounter for care or examination of mother immediately after delivery Z39.0 visit type: exam and care immediately after delivery Failure to progress in labor O62.2 Failed medical induction of labor O61.0 Failed induction of labor type: medical
== END 2023-12-15 16:30 | disposition home or self-care (01) | DRG 788 ==
LOC: OPB 19:07 → 4S1 19:08 → 4E2 12-10 20:00 → 4S1 12-13 13:00 → 4E2 12-14 15:42
DX: O48.0 Post-term pregnancy; O99.344 Other mental disorders complicating childbirth; O14.94 Unspecified pre-eclampsia, complicating childbirth; Z3A.41 41 weeks gestation of pregnancy; O62.1 Secondary uterine inertia; Z37.0 Single live birth; F41.0 Panic disorder [episodic paroxysmal anxiety]